=== PATIENT | male | born 1960 | race Caucasian/White ===

== ENCOUNTER 2019-05-10 19:24 | Inpatient (IN) ==
[2019-05-10] MEDS ORDERED: SODIUM CHLORIDE 0.9% 500 ML IV SCH (19:45)
[2019-05-10 20:04] LABS: Basophils # (auto) 0.01 K/uL (0-0.2); Basophils % (auto) 0.1 %; Hematocrit (blood only) 40.7 % (42-52); Hemoglobin 14.6 g/dL (14.0-18.0); Immature Granulocytes # (auto) 0.04 K/uL (0.00-0.02); Immature Granulocytes % (auto) 0.3 %; Lymphocytes # (auto) 0.36 K/uL (1.2-3.4); Lymphocytes % (auto) 2.7 %; Mean Corpuscular Hemoglobin 35.7 pg (25-34); Mean Corpuscular Hgb Conc 35.9 g/dL (32-36); Mean Corpuscular Volume 99.5 fL (80-100); Mean Platelet Volume 9.7 fL (7.4-10.4); Monocytes % (auto) 2.3 %; Neutrophils # (auto) 12.42 K/uL (1.4-6.5); Neutrophils % (auto) 94.6 %; Platelet Count 294 K/uL (130-400); RDW Coefficient of Variation 14.3 % (11.5-14.5); RDW Standard Deviation 52.1 fL (36.4-46.3); Red Blood Count 4.09 M/uL (4.7-6.1); White Blood Count 13.13 K/uL (4.8-10.8)
[2019-05-10 20:27] LABS: Appearance Urine Cloudy (Clear); Bacteria Urine Automated 4+ (Negative); Bilirubin Urine Negative (Negative); Blood Urine 3+ (Negative); Color Urine Yellow; Glucose Urine UA 2+ (Negative); Ketones Urine 1+ (Negative); Leukocyte Esterase Urine 2+ (Negative); Nitrite Urine Negative (Negative); Protein Urine 2+ (Negative); RBC Urine Automated 0-4 /hpf (0-4); Urobilinogen Urine Negative (Negative); WBC Urine Automated >30 /hpf (0-5); pH Urine 5.5 (4.5-7.5)
--- NOTE | 2019-05-10 20:33 | CT Scan Report ---
CT head/brain wo con CLINICAL HISTORY: 58 years-old Male with ams eval for bleed. Acutely altered mental status TECHNIQUE: Multiple axial CT images of the head were obtained without contrast. A dose lowering tech nique was utilized adhering to the principles of ALARA. CT DOSE: 614.27 mGy.cm COMPARISON: Head CT 05/14/2016. FINDINGS: No acute intracranial hemorrhage, midline shift, intracranial mass, hydrocephalus, territorial ischem ia or abnormal extra-axial collection. Age-related involutional changes with ex vacuo ventriculomegal y. Patchy white matter hypodensities suggest chronic microvascular ischemic disease, progressed from comparison study. Cerebral vascular calcifications are also noted. The calvarium is intact. The paranasal sinuses, mastoid air cells, and middle ear cavities are clear . IMPRESSION: 1. No acute intracranial abnormality. 2. Age-related involutional changes with ex vacuo ventriculomegaly. 3. Patchy white matter hypodensities suggestive of chronic microvascular ischemic disease, progressiv dawson worsened from 05/14/2016. The above report was generated using voice recognition software. It may contain grammatical, syntax o r spelling errors. Electronically signed by: Jacky Vital M.D. 05/10/2019 8:32 PM
[2019-05-10 20:35] LABS: Troponin I 1.19 ng/ml (0-0.045)
[2019-05-10 20:43] LABS: Albumin Globulin Ratio 0.6 (0.9-2); Albumin Level 2.9 gm/dl (3.4-5.0); BUN Creatinine Ratio 33.8 (10-20); Bilirubin,Total 0.5 mg/dl (0.2-1); Calcium 9.6 mg/dl (8.5-10.1); Creatinine Clr Calc Pharmacy 64.5 ml/min; Est GFR (African American) 112.2; Est GFR (Non-African American) 96.8; Globulin 5.2 gm/dl (2.5-4.0); Magnesium 2.1 mg/dl (1.8-2.4); Potassium 3.9 mmol/L (3.5-5.1); Thyroid Stimulating Hormone 2.32 uIu/ml (0.300-4.500); Total Protein 8.1 gm/dl (6.4-8.2)
[2019-05-10 20:56] LABS: Cast Urine Automated 0 /lpf (0-5)
--- NOTE | 2019-05-10 20:57 | XRay Report ---
XR chest 1V portable HISTORY: 58 years-old Male weakness acute weakness COMPARISON: Chest CT 05/14/2016 TECHNIQUE: Portable AP view of the chest FINDINGS: Cardiomediastinal and hilar silhouettes are within normal limits. No pneumothorax, large pleural effu cora or overt pulmonary edema. Multifocal patchy alveolar opacities are noted throughout the left vi g and to lesser extent within the right upper lobe. Degenerative changes of the shoulders and spine. IMPRESSION: Patchy multifocal alveolar opacities throughout the left lung and to a lesser extent with in the right upper lobe are suggestive of multifocal pneumonia. The above report was generated using voice recognition software. It may contain grammatical, syntax o r spelling errors. Electronically signed by: Jacky Vital M.D. 05/10/2019 8:56 PM
[2019-05-10] MEDS ORDERED: OPTIRAY 320 125ml IV PRN (21:12)
[2019-05-10 21:16] LABS: Creatine Kinase MB 26.1 ng/ml (0.5-3.6)
--- NOTE | 2019-05-10 21:31 | CT Scan Report ---
CT angio neck with con, CT angio head w con CLINICAL HISTORY: 58 years-old Male with right weakness eval for occlusion. Acute right-sided weak ness with strokelike symptoms. COMPARISON STUDY: Head CT of same day, cervical spine and chest CT 05/14/2016 TECHNIQUE: Following the IV administration of 118 of Optiray 320, CT angiogram of the head and neck w as performed from the aortic arch to the skull base. Images are reviewed in the axial, sagittal, and coronal planes. 3-D MIPS images are created and assessed. IV contrast was administered without compli cation. All measurements were calculated based on NASCET criteria. A dose lowering technique was uti lized adhering to the principles of ALARA. CT DOSE: 475.42 mGy.cm FINDINGS: The imaged opacified pulmonary tree all branches of the upper lobes appear unremarkable. Moderate mix ed plaque of the thoracic aortic arch with patency of the imaged bilateral proximal subclavian arteri es. There is mild mixed plaque of the right common carotid artery without high-grade stenosis. Severe mixed plaque of the right carotid bulb and proximal right ICA results in less than 50% luminal narro wing. There is severe mixed plaque about the mid left common carotid artery, image 153 of series 2 wh ich results in approximately 60% luminal narrowing. Severe mixed plaque of the left carotid bulb and proximal left ICA results in 50% luminal narrowing, image 21 series 2. Extensive calcified plaque is noted about the bilateral cavernous, clinoid and supraclinoid segments with approximately 50% luminal narrowing of the right cavernous segment, image 376 series 2. The bilateral middle and anterior cere bral arteries appear patent. Dominant left vertebral artery. Calcified plaque at the origin of the left vertebral artery is noted without high-grade stenosis. Moderate calcified plaque about the V4 segment left vertebral artery res ults in approximately 50% luminal narrowing on image 353 series 2. Calcified plaque at the origin of the right vertebral artery results in moderate luminal narrowing. Calcified plaque about the V2 segme nt right vertebral artery on image 181 series 2 results in approximately 50% luminal narrowing. Large area of calcified plaque about the V4 segment right vertebral artery on image 327 just proximal to t he PICA origin. The distal right V4 segment is diminutive in size. Patent basilar and bilateral poste rior cerebral arteries. Cerebral venous sinuses appear patent. Emphysema. Patchy nodular alveolar opacities of the lung apices suggests infectious or inflammatory p neumonitis. Irregular 8 x 4 mm solid nodule of the right lung apex, new from 2016. Soft tissues of th e neck are unremarkable. No intracranial enhancement. Degenerative changes of the spine. Mastoid air cells and middle ear cavities are clear. Mild mucosal thickening of the frontal and ethmoid sinuses. IMPRESSION: 1. Severe mixed plaque of the right carotid bulb and proximal right ICA results in less than 50% chon nal narrowing. 2. Severe mixed plaque of the left carotid bulb and proximal left ICA results in 50% luminal narrowin g. Additionally, there is calcified plaque of the mid left common carotid artery resulting in 60% lum inal narrowing. 3. No aneurysm, dissection, or proximal branch occlusion. 4. Emphysema with partially imaged patchy nodular consolidative opacities as described on chest radio graph of same day suggestive of infectious or inflammatory pneumonitis. 5. Irregularity 8 x 4 mm solid nodule of the right lung apex is new from 2016. Follow-up as described below is needed to exclude neoplasm. Please refer to below summary of Fleischner criteria recommendations for follow-up of incidental CT n odules (Addie Simpson, Guidelines for management of small pulmonary nodules detected on CT scans: A sta tement from the Fleischner Society, Radiology 237: [phone].) SOLID NODULES Solitary nodule size: <6 mm * Low risk patients: no follow-up needed * high risk patients: optional CT at 12 months Solitary nodule size: 6-8 mm * Low risk patients: follow-up at 6-12 months, then consider further follow-up at 18-24 months * high risk patients: initial follow-up CT at 6-12 months and then at 18-24 months if no change Solitary nodule size: >8 mm * either low or high risk patients - consider follow-up CT at 3 months, and/or CT-PET, and/or biopsy Multiple nodules size: <6 mm * Low risk patients: no routine follow-up * high risk patients: optional CT at 12 months Multiple nodules size: 6-8 mm * Low risk patients: follow-up at 3-6 months, then consider further follow-up at 18-24 months * high risk patients: follow-up at 3-6 months, then at 18-24 months if no change Multiple nodules size: >8 mm * Low risk patients: follow-up at 3-6 months, then consider further follow-up at 18-24 months * high risk patients: follow-up at 3-6 months, then at 18-24 months if no change Note: newly detected indeterminate nodule in persons 35 years of age or older. * Low risk patients: minimal or absent history of smoking and/or other known risk factors * high risk patients: history of smoking or of other known risk factors (e.g. first degree relative with lung cancer, or exposure to asbestos, radon, uranium) * if a nodule up to 8 mm is partly solid or is ground glass further follow-up is required after 24 m onths to exclude possible slow growing adenocarcinoma ([facility]YSTLE) The above report was generated using voice recognition software. It may contain grammatical, syntax o r spelling errors. Electronically signed by: Jacky Vital M.D. 05/10/2019 9:29 PM
[2019-05-10] MEDS ORDERED: PIPERACILLIN/TAZOBACTAM 4.5 GM/120 ML BAG IV ONE (21:55)
[2019-05-10] MEDS ORDERED: PIPERACILL/TAZOBAC CONSULT ACTIVE PRN (21:55)
--- NOTE | 2019-05-10 23:36 | Emergency Department Note ---
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 sent a CPK and CK-MB level which were both elevated. He was given normal saline IV. I did discuss the case with the hospitalist and case investigator. He will be hospitalized for further care and evaluation. Impression & Plan AMS (altered mental status), Hypoglycemia, Stroke-like symptoms, Right sided weakness, Elevated troponin, Abnormal ECG, Acute UTI, Multifocal pneumonia Discharge Plan Visit Data Chief Complaint: Altered Mental Status Stated Complaint: AMS, Hypoglycemia ED Provider: Eagle Flaherty Discharge Problem: AMS (altered mental status), Hypoglycemia, Stroke-like symptoms, Right sided weakness, Elevated troponin, Abnormal ECG, Acute UTI, Multifocal pneumonia Patient Disposition: Being Evaluated by Hospitalist Forms Stand Alone Forms: My [facility] Prescriptions Prescriptions: No Action metoprolol tartrate [Lopressor] 50 mg Tablet 25 mg PO BID RF: 0 lisinopril [Zestril] 2.5 mg Tablet 2.5 mg PO DAILY RF: 0 Referrals Referrals: PCP,NO [Primary Care Provider] - Discharge Problem: AMS (altered mental status) Qualifiers: Altered mental status type: unspecified Qualified Code(s): R41.82 - Altered m ental status, unspecified The scribe's documentation has been prepared under my direction and personally reviewed by me in its entirety. I confirm that the note above accurately reflects all work, treatment, procedures, and medical decision making performed by me.
[2019-05-11] MEDS ORDERED: PIPERACILL/TAZOBAC CONSULT ACTIVE PRN (00:56)
[2019-05-11] MEDS ORDERED: D5W AND 1/2NSS 1,000 ML IV SCH (00:56)
[2019-05-11] MEDS ORDERED: ALBUT/IPRATROP 3MG/0.5MG NEB 3 ML VIAL NEB PRN (00:56)
[2019-05-11] MEDS ORDERED: ONDANSETRON INJ 2 MG/ML 2 ML VIAL IV PRN (00:56)
[2019-05-11] MEDS ORDERED: KETOROLAC TROMETHAMINE 15 MG/ML VIAL IV PRN (00:56)
[2019-05-11] MEDS ORDERED: VANCOMYCIN CONSULT ACTIVE PRN (00:56)
[2019-05-11] MEDS ORDERED: VANCOMYCIN HCL 1,250 MG in SODIUM CHLORIDE 0.9% 250 ML IV STA (01:11)
[2019-05-11] MEDS ORDERED: METOPROLOL TARTRATE 1 MG/ML VIAL IV STA (01:15)
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
[2019-05-11] MEDS: PIPERACILLIN/TAZOBACTAM 3.375 GM in DEXTROSE 5% 100 ML IV SCH ×3 (04:12→21:08)
[2019-05-11] MEDS: FAMOTIDINE 20 MG TAB PO SCH ×4 (04:14→21:08)
[2019-05-11 07:18] LABS: Hematocrit (blood only) 34.9 % (42-52); Hemoglobin 12.2 g/dL (14.0-18.0); Mean Corpuscular Hemoglobin 34.7 pg (25-34); Mean Corpuscular Volume 99.1 fL (80-100); Mean Platelet Volume 8.9 fL (7.4-10.4); Platelet Count 222 K/uL (130-400); RDW Coefficient of Variation 14.3 % (11.5-14.5); RDW Standard Deviation 51.7 fL (36.4-46.3); Red Blood Count 3.52 M/uL (4.7-6.1); White Blood Count 14.53 K/uL (4.8-10.8)
[2019-05-11 07:38] LABS: Albumin Level 2.2 gm/dl (3.4-5.0); Bilirubin Direct 0.2 mg/dl (0-0.2); Calcium 8.3 mg/dl (8.5-10.1); Creatinine Clr Calc Pharmacy 72.6 ml/min; Est GFR (Non-African American) 102.7; Potassium 2.2 mmol/L (3.5-5.1)
[2019-05-11 08:09] LABS: Albumin Globulin Ratio 0.5 (0.9-2); Bilirubin,Total 0.5 mg/dl (0.2-1); Ferritin 2562.4 ng/ml (8-388); Globulin 4.4 gm/dl (2.5-4.0); Total Protein 6.6 gm/dl (6.4-8.2); Troponin I 1.25 ng/ml (0-0.045)
[2019-05-11] MEDS ORDERED: POTASSIUM CHLORIDE 20 MEQ TABCR PO STA (08:31)
[2019-05-11] MEDS: ENOXAPARIN INJ 30 MG/0.3 ML SYR SQ SCH (09:42)
[2019-05-11] MEDS: METOPROLOL TARTRATE 25 MG TAB PO SCH ×2 (09:43→21:08)
[2019-05-11] MEDS: CEROVITE ADV FORMULA TAB PO SCH (09:43)
[2019-05-11] MEDS: ASPIRIN 81 MG ECTAB PO SCH (09:44)
[2019-05-11] MEDS: THIAMINE HCL 100 MG TAB PO SCH (09:44)
[2019-05-11] MEDS: LISINOPRIL 2.5 MG TAB PO SCH (09:44)
[2019-05-11] MEDS: FOLIC ACID 1 MG TAB PO SCH (09:44)
[2019-05-11] MEDS: POTASSIUM CHLORIDE 20 MEQ TABCR PO SCH ×3 (09:45→21:08)
[2019-05-11] MEDS ORDERED: VANCOMYCIN HCL 750 MG in SODIUM CHLORIDE 0.9% 250 ML IV SCH (14:00)
[2019-05-11] MEDS: THIAMINE HCL 500 MG in 0.9 % SODIUM CHLORIDE 100 ML IV SCH ×2 (16:01→21:09)
[2019-05-11] MEDS: POTASSIUM CHLORIDE 40 MEQ in SODIUM CHLORIDE 0.45 % 1,000 ML IV SCH (16:02)
--- NOTE | 2019-05-11 17:56 | Hospitalist Progress Note ---
Date of Service May 11, 2019 Assessment & Plan (1) Hypoglycemia: Treated by EMS has been stable since arrival. Continue to follow (2) AMS (altered mental status): Differential seems broaddelirium from infection versus dehydration versus hypoglycemia all would fit with potential metabolic encephalopathies, late alcohol withdrawal, or Werneke Korsakoff encephalopathy certainly of concern as well -Continue to treat all possible problems, serial exams, follow closely. See below otherwise. (3) Right sided weakness: Unclear, seems to have been transient and corrected after hypoglycemia was corrected, but at the same time certainly hypoglycemia should not cause focal neurologic deficits, and there is definitely concern for him having vascular disease. He is not actively having a stroke, no immediate interventions are needed, but this will need to be better discerned as well. Aspirin for now. Low threshold for neurology consult by stroke center guidelines. (4) Elevated troponin: Patient declines chest pain Has stayed in a fairly steady range, with no rise and fall indicative of VT, no EKG changes indicative of VT. Possibly related to LVH noted on echo. Continue to follow closely. Given the level of his troponin, and the concern for vascular disease, obviously will need to follow closely, low threshold to consider things such as stress mercedes ting if the need arises (5) Multifocal pneumonia: Aspiration versus community-acquiredMRSA nares was negative, continue Zosyn to cover for both (6) Acute UTI: Versus asymptomatic bacteriuriabut already on Zosyn for lungs (7) Ulcers of both lower extremities: Does not have tracking erythema, while he is high risk for lots of significant problems, healthcare associated infection does not appear to be 1 of them, so the Zosyn alone without vancomycin should cover (8) Malnutrition: Appears to be at least moderate to may be severe protein and calorie malnutrition as indicated by his low weight is emaciated appearance and his low albumin. Supplement electrolytes and vitamins, nutritional supplements once he is able to. With his dysphasia there is high concern about aspiration, will need to follow this closely, right now he is not able to safely eat and we may need to place an NG tube for tube feeds if it does not appear to be improving anytime soon. (9) Dysphasia: Speech eval quite concerning, ongoing eval and treat. Is unclear how much of this may be chronic versus acute. Hopefully as some of his delirium/encephalopathy improves he may be L to eat and drink more safely. Otherwise as above (10) Alcohol abuse: Is unclear how long he was a drinker or when he quit. In his history of questionable veracity he tells me he quit about a month ago. Certainly if that is true, and he suffered bad withdrawal, we could be seeing the "fall out" of having gone through DTs at home and now being malnourished/delirious/sick from an aspiration pneumonia, etc. Continue to follow closely. Given that Wernicke- Korsakoff is on the differentialwe are giving not only folate but also high- dose thiamine. (11) DVT prophylaxis: lovenox (12) Discharge planning issues: likely to be here a good while given cormobidities - as getting better will need PT/OT and probably case management. ?placement Subjective Notes that he feels fine, denies any pain denies any shortness of breath. Exceedingly limited HPI and review of systems of very questionable veracity, gives 1-2 word answers to directed questions only. Denies any problems. Review of Systems Review of Systems: All systems reviewed & are unremarkable except as noted in HPI & below and Unobtainable due to cognitive status See above Physical Exam Physical Exam: In general he is awake and alert is able to say that he is in the hospital, but appears to be quite altered. Fatigued laying somewhat hunched over in the bed. No apparent pain or respiratory distress. HEENT normocephalic atraumatic mucous membranes are moist Cardio is distant without rubs murmurs gallops Lungs show mucus sounding rhonchi bilaterally left worse than right as well as what sounds to be some referred upper airway sounds. No wheezing no accessory muscle use Abdomen soft nontender Extremities without cyanosis clubbing or edema Skin with diffuse ulcerations, no tracking erythema. No pallor or icterus Neuro without any focal deficits. Mental status seems quite poor, difficult to appellate court judge given the limited nature of his answers Results & Data Vital Signs (Past 12 Hours) Vital Signs Temp Pulse Pulse Resp BP BP Pulse Ox 05/11/19 16:00 67 05/11/19 15:53 98.4 F 90 18 134/88 98 05/11/19 11:55 98.2 F 76 20 134/84 96 05/11/19 08:09 97.9 F 75 16 118/82 96 05/11/19 08:00 74 PG Care Time/CCT Total # of Minutes Spent Total Time Spent with Patient: Total time spent is greater than 50% in coordination of care (as documented) at patient's floor/unit and/or counseling patient: (1) AMS (altered mental status) Altered mental status type: unspecified Qualified Code(s): R41.82 - Altered mental status, unspecified
[2019-05-11] MEDS ORDERED: ALBUT/IPRATROP 3MG/0.5MG NEB 3 ML VIAL NEB STA (19:27)
[2019-05-11] MEDS: ALBUT/IPRATROP 3MG/0.5MG NEB 3 ML VIAL NEB SCH ×2 (20:25→23:58)
[2019-05-11 20:44] LABS: Base Excess ABG 0.1 mEq/L (-9-1.8); HCO3 ABG 22 mmol/L (19-24); Oxygen Saturation ABG 95.5 % (90-95); PCO2 ABG 29 mmHg (35-46); PO2 ABG 75 mm/Hg (80-95)
[2019-05-11 20:47] LABS: Allen Test Pos (Pos)
[2019-05-11] MEDS ORDERED: THIAMINE HCL 500 MG in SYRINGE 9 ML IV SCH (21:00)
[2019-05-12] MEDS: ALBUT/IPRATROP 3MG/0.5MG NEB 3 ML VIAL NEB SCH ×6 (02:33→23:39)
[2019-05-12] MEDS: PIPERACILLIN/TAZOBACTAM 3.375 GM in DEXTROSE 5% 100 ML IV SCH ×3 (03:50→21:25)
[2019-05-12] MEDS: POTASSIUM CHLORIDE 40 MEQ in SODIUM CHLORIDE 0.45 % 1,000 ML IV SCH ×2 (03:50→15:05)
[2019-05-12 05:59] LABS: Hematocrit (blood only) 34.6 % (42-52); Hemoglobin 12.1 g/dL (14.0-18.0); Mean Corpuscular Hemoglobin 34.4 pg (25-34); Mean Corpuscular Volume 98.3 fL (80-100); Mean Platelet Volume 9.7 fL (7.4-10.4); Platelet Count 213 K/uL (130-400); RDW Coefficient of Variation 14.3 % (11.5-14.5); RDW Standard Deviation 51.4 fL (36.4-46.3); Red Blood Count 3.52 M/uL (4.7-6.1); White Blood Count 7.57 K/uL (4.8-10.8)
[2019-05-12 06:18] LABS: Basophils # (auto) 0.01 K/uL (0-0.2); Basophils % (auto) 0.1 %; Dohle Bodies 1+; Echinocytes 1+; Immature Granulocytes # (auto) 0.04 K/uL (0.00-0.02); Immature Granulocytes % (auto) 0.5 %; Lymphocytes # (auto) 0.27 K/uL (1.2-3.4); Lymphocytes % (auto) 3.6 %; Monocytes % (auto) 1.3 %; Neutrophils # (auto) 7.15 K/uL (1.4-6.5); Neutrophils % (auto) 94.5 %
[2019-05-12 06:39] LABS: Albumin Globulin Ratio 0.5 (0.9-2); Albumin Level 1.9 gm/dl (3.4-5.0); BUN Creatinine Ratio 26.4 (10-20); Bilirubin Direct 0.3 mg/dl (0-0.2); Bilirubin,Total 0.6 mg/dl (0.2-1); Calcium 8.5 mg/dl (8.5-10.1); Creatinine Clr Calc Pharmacy 90.8 ml/min; Est GFR (African American) 132.2; Est GFR (Non-African American) 114.1; Globulin 4.2 gm/dl (2.5-4.0); Potassium 3.3 mmol/L (3.5-5.1); Total Protein 6.1 gm/dl (6.4-8.2)
--- NOTE | 2019-05-12 06:39 | CT Scan Report ---
CT angio chest PE protocol CT DOSE: 283.05 mGy.cm HISTORY: Dyspnea sudden hypoxia TECHNIQUE: Multiaxial CT images of the chest were performed following the intravenous administration of contrast to evaluate the pulmonary arteries. Maximal intensity projection images were also obtaine d. A dose lowering technique was utilized adhering to the principles of ALARA. COMPARISON STUDY: 05/14/2016 FINDINGS: The examination is considered negative for pulmonary embolus. Pulmonary vasculature enhance s uniformly. Thoracic aorta is negative for aneurysm. There are findings of diffuse bilateral parenchymal infiltrative change. This is somewhat more promin ent involving the left hemithorax compared to the right. Scattered areas of consolidative change are present throughout. There are at least 2 old right rib fractures. No significant and are only minimally reactive mediastinal and/or hilar adenopathy. IMPRESSION: 1. Size negative for pulmonary embolus. 2. Diffuse bilateral consolidative parenchymal infiltrative changes. 3. Emphysematous change considered mild with several small blebs in the pulmonary apical regions. The above report was generated using voice recognition software. It may contain grammatical, syntax or spelling errors. Electronically signed by: Georgi Rapp M.D. 05/12/2019 6:38 AM
[2019-05-12] MEDS: ASPIRIN 81 MG ECTAB PO SCH (07:39)
[2019-05-12] MEDS: CEROVITE ADV FORMULA TAB PO SCH (07:40)
[2019-05-12] MEDS: THIAMINE HCL 100 MG TAB PO SCH (07:40)
[2019-05-12] MEDS: METOPROLOL TARTRATE 25 MG TAB PO SCH (07:40)
[2019-05-12] MEDS: FAMOTIDINE 20 MG TAB PO SCH (07:40)
[2019-05-12] MEDS: LISINOPRIL 2.5 MG TAB PO SCH (07:40)
[2019-05-12] MEDS: FOLIC ACID 1 MG TAB PO SCH (07:40)
[2019-05-12] MEDS: THIAMINE HCL 500 MG in 0.9 % SODIUM CHLORIDE 100 ML IV SCH ×3 (07:57→21:25)
[2019-05-12] MEDS: ENOXAPARIN INJ 30 MG/0.3 ML SYR SQ SCH (07:57)
[2019-05-12] MEDS: FOLIC ACID 1 MG in SYRINGE 9.8 ML IV SCH (08:36)
[2019-05-12] MEDS: METOPROLOL TARTRATE 1 MG/ML VIAL IV SCH ×2 (11:26→19:33)
[2019-05-12] MEDS ORDERED: VANCOMYCIN TROUGH ONE (13:30)
--- NOTE | 2019-05-12 17:41 | Hospitalist Progress Note ---
Date of Service May 12, 2019 Assessment & Plan (1) Hypoglycemia: Treated by EMS has been stable since arrival. Continue to follow (2) AMS (altered mental status): Differential seems broaddelirium from infection versus dehydration versus hypoglycemia all would fit with potential metabolic encephalopathies, late alcohol withdrawal, or Werneke Korsakoff encephalopathy certainly of concern as well -Continue to treat all possible problems as I suspect this is multifactorial, serial exams, follow closely. See below otherwise. (3) Right sided weakness: Unclear, seems to have been transient and corrected after hypoglycemia was corrected, but at the same time certainly hypoglycemia should not cause focal neurologic deficits, and there is definitely concern for him having vascular disease. He is not actively having a stroke, no immediate interventions are needed, but this will need to be better discerned as well. Aspirin for now. Repeat brain imagingsince we have been unable to obtain MRI brain we will repeat CT head. He shows no focal neuro deficits now outside of his asymmetric pupils (which again have a chronic appearance to it although I do not recall seeing it yesterday, his eyes have not been very widely opened and yesterday was certainly much more concerned with his respiratory status) (4) Elevated troponin: While his history is of questionable veracity he has repeatedly denied chest pain. His echo shows a degree of LVH. Certainly he could have underlying coronary disease, and this may be indicative of demand ischemia from his pneumonia and overall presentation, but certainly nothing appears acute otherwise. Continue to follow closely, continue aspirin (5) Multifocal pneumonia: Aspiration versus community-acquiredMRSA nares was negative, continue Zosyn to cover for both. Certainly there is high concern on aspiration given his overall inability to swallow safely. (6) Acute UTI: Versus asymptomatic bacteriuriabut already on Zosyn for lungs (7) Ulcers of both lower extremities: Continue local wound care. (8) Malnutrition: Appears to be at least moderate to may be severe protein and calorie malnutrition as indicated by his low weight is emaciated appearance and his low albumin. Supplement electrolytes and vitamins, nutritional supplements once he is able to. Given that his dysphagia is not improving, and his malnutrition probably preceded his hospitalization by quite a bit, we will place an NG tube to be able to start tube feedings (9) Dysphasia: Speech eval quite concerning, ongoing eval and treat. Is unclear how much of this may be chronic versus acute. Hopefully as he clinically improves he will be able to eat and drink more safely, but as above noted under malnutrition, I harbor grave concerns about his ability to gain ground that he loseshence placing NG tube and starting tube feeds. (10) Alcohol abuse: Is unclear how long he was a drinker or when he quit. In his history of questionable veracity he tells me he quit about a month ago. Certainly if that is true, and he suffered bad withdrawal, we could be seeing the "fall out" of having gone through DTs at home and now being malnourished/delirious/sick from an aspiration pneumonia, etc. Continue to follow closely. Given that Wernicke- Korsakoff is on the differentialwe are giving not only folate but also high- dose thiamine. Continue to replace these. (11) DVT prophylaxis: lovenox (12) Discharge planning issues: likely to be here a good while given cormobidities - as getting better will need PT/OT and probably case management. ?placement Subjective Not much of any meaningful HPI or review of systems obtainable from patient today. Nursing notes that he has been about the same as through the early part of the day yesterday. Still with no meaningful ability to swallow, still giving questionably coherent 1-2 word answers and grunts, but generally appearing to not be in any significant distress. He does sometimes desaturate whenever he is asleep, and they have been working with various oxygen devices to remedy this. To me he denies any complaints, but again opens his eyes about fci and gives 1 word answers. Review of Systems Review of Systems: Unobtainable due to cognitive status Physical Exam Physical Exam: General he appears quite fatigued although in no distress. HEENT normocephalic atraumatic mucous membranes moist. Cardio is regular withou t rubs murmurs gallops, lungs show diffuse coarse rhonchi bilaterally no wheezing no accessory muscle use good effort. Abdomen is soft nondistended nontender no masses organomegaly. Extremities show no cyanosis clubbing or edema no calf tenderness. He has diffuse muscle wasting. Neuro shows equal muscle tone bilaterally, his left pupil is significantly larger than the right but has a chronic appearance to it, although I did not notice it yesterday Results & Data Vital Signs (Past 12 Hours) Vital Signs Temp Pulse Pulse Pulse Resp BP BP 05/12/19 15:27 98.1 F 79 18 116/76 05/12/19 15:23 79 16 05/12/19 11:26 105 H 112/81 05/12/19 10:54 83 20 05/12/19 10:49 98.4 F 95 H 22 123/81 05/12/19 07:29 98.8 F 105 H 20 134/94 05/12/19 06:55 90 22 Pulse Ox 05/12/19 15:27 96 05/12/19 15:23 96 05/12/19 11:26 05/12/19 10:54 87 L 05/12/19 10:49 93 05/12/19 07:29 90 05/12/19 06:55 90 PG Care Time/CCT Total # of Minutes Spent Total Time Spent with Patient: Total time spent is greater than 50% in coordination of care (as documented) at patient's floor/unit and/or counseling patient: (1) AMS (altered mental status) Altered mental status type: unspecified Qualified Code(s): R41.82 - Altered mental status, unspecified
--- NOTE | 2019-05-12 19:06 | CT Scan Report ---
CT head/brain wo con CLINICAL HISTORY: 58 years-old Male presenting with right sided weakness; f/u CT since unable to unde rgo MRI. TECHNIQUE: Multidetector CT imaging of the head was performed without the use of intravenous contrast . IV contrast: None. One or more dose lowering techniques were used consistent with the principles of ALARA (as low as reasonably achievable), including automatic exposure control, mA or kV adjustment t o individual patient size, and/or use of iterative reconstruction. COMPARISON: 05/10/2019. CT DOSE (mGy.cm): The estimated cumulative dose is 614.27 mGy.cm. FINDINGS: Skein Yard Drier topogram: Unremarkable. Proportional ventricular and sulcal prominence, likely age-related parenchymal volume loss. No hemorr bethany. Periventricular and subcortical white matter hypoattenuation, nonspecific but likely indicative of chronic small vessel ischemic change. No acute territorial infarct. No mass effect or midline chino ft. No extra-axial fluid collection. Paranasal sinuses and mastoid air cells clear. Calvarium intact. Intracranial atherosclerosis noted. IMPRESSION: 1. Chronic small vessel ischemic change. No acute intracranial abnormality. Electronically signed by: Lex Claros M.D. 05/12/2019 7:05 PM
[2019-05-12] MEDS ORDERED: ACETYLCYSTEINE 20% INHAL SOLN ***DISPENSED BY RESP. INH ONE (21:50)
[2019-05-13] MEDS: METOPROLOL TARTRATE 1 MG/ML VIAL IV SCH ×4 (01:00→18:51)
[2019-05-13] MEDS: ALBUT/IPRATROP 3MG/0.5MG NEB 3 ML VIAL NEB SCH ×6 (03:43→23:08)
[2019-05-13] MEDS: PIPERACILLIN/TAZOBACTAM 3.375 GM in DEXTROSE 5% 100 ML IV SCH ×3 (05:20→21:53)
[2019-05-13] MEDS: POTASSIUM CHLORIDE 40 MEQ in SODIUM CHLORIDE 0.45 % 1,000 ML IV SCH ×2 (05:20→17:02)
--- NOTE | 2019-05-13 06:54 | XRay Report ---
XR KUB/Abdomen 1 view CLINICAL HISTORY: MRI clearance COMPARISON STUDY: No previous studies for comparison. FINDINGS: There are extensive vascular calcifications present. There is no pathologic bowel dilatatio n. Overlying cardiac leads are visualized. There are no mechanical devices or foreign bodies within t he abdomen. IMPRESSION: 1. Nonobstructive bowel gas pattern 2. No abdominal contraindications for MRI scanning Electronically signed by: Pepito Vieira M.D. 05/13/2019 6:53 AM
[2019-05-13 08:14] LABS: Basophils # (auto) 0.01 K/uL (0-0.2); Basophils % (auto) 0.1 %; Eosinophils # (auto) 0.01 K/uL (0-0.5); Eosinophils % (auto) 0.1 %; Hematocrit (blood only) 32.5 % (42-52); Hemoglobin 11.4 g/dL (14.0-18.0); Immature Granulocytes # (auto) 0.02 K/uL (0.00-0.02); Immature Granulocytes % (auto) 0.2 %; Lymphocytes # (auto) 0.39 K/uL (1.2-3.4); Lymphocytes % (auto) 4.1 %; Mean Corpuscular Hemoglobin 34.9 pg (25-34); Mean Corpuscular Hgb Conc 35.1 g/dL (32-36); Mean Corpuscular Volume 99.4 fL (80-100); Mean Platelet Volume 9.3 fL (7.4-10.4); Monocytes # (auto) 0.21 K/uL (0.11-0.59); Monocytes % (auto) 2.2 %; Neutrophils # (auto) 8.93 K/uL (1.4-6.5); Neutrophils % (auto) 93.3 %; Platelet Count 180 K/uL (130-400); RDW Coefficient of Variation 14.3 % (11.5-14.5); RDW Standard Deviation 52.1 fL (36.4-46.3); Red Blood Count 3.27 M/uL (4.7-6.1); White Blood Count 9.57 K/uL (4.8-10.8)
[2019-05-13 08:53] LABS: BUN Creatinine Ratio 31.9 (10-20); Calcium 8.6 mg/dl (8.5-10.1); Creatinine Clr Calc Pharmacy 110.5 ml/min; Est GFR (African American) 143.6; Est GFR (Non-African American) 123.9; Potassium 3.7 mmol/L (3.5-5.1)
--- NOTE | 2019-05-13 09:25 | Magnetic Resonance Report ---
MR brain wo con CLINICAL HISTORY: 58 years-old Male presenting with Transient Right sided weakness, nonverbal, anisoc oria, left facial droop. TECHNIQUE: Multisequence, multiplanar MR imaging of the brain was performed without the use of intrav enous contrast. IV contrast: None. COMPARISON: Noncontrast CT head performed the previous day urine FINDINGS: Localizer images: Unremarkable. Bone marrow signal intensity within the calvarium within normal limits. Normal midline sagittal structures. Proportional ventricular and sulcal prominence consistent with pa renchymal atrophy. This is out of proportion to the patient's age and is diffuse.. No mass effect or midline shift. Multiple small foci of acute restricted diffusion noted in the left paramedian superio r cerebellum, left periventricular white matter along the posterior limb of the internal capsule, per iventricular white matter adjacent to the left body of the caudate, in the subcortical white matter o f the left temporal lobe. Although their size makes correlation difficult, these appear to have assoc iated low signal intensity on ADC map. Periventricular and subcortical white matter T2/FLAIR hyperint ensity, nonspecific but likely indicative of chronic small vessel ischemic change. No extra-axial fluid collection. T2 skull base flow voids preserved. IMPRESSION: 1. Multifocal small foci of acute ischemia in the periventricular and subcortical white matter of th e left cerebrum. 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 Differential considerations include cerebral autosomal dominant arter iopathy with subcortical infarcts and leukoencephalopathy (CADASIL) or, less likely, CHILLER OPERATOR vasculitis. Notably, no findings to suggest CHILLER OPERATOR vasculitis were demonstrated on the CTA performed recently on 06/2019. Electronically signed by: Lex Claros M.D. 05/13/2019 9:23 AM
[2019-05-13] MEDS: ENOXAPARIN INJ 30 MG/0.3 ML SYR SQ SCH (09:38)
[2019-05-13] MEDS: FOLIC ACID 1 MG in SYRINGE 9.8 ML IV SCH (09:38)
[2019-05-13] MEDS: THIAMINE HCL 500 MG in 0.9 % SODIUM CHLORIDE 100 ML IV SCH ×2 (10:28→15:53)
--- NOTE | 2019-05-13 20:49 | Hospitalist Progress Note ---
Date of Service May 13, 2019 Assessment & Plan (1) AMS (altered mental status): Differential seems broaddelirium from infection versus dehydration versus hypoglycemia all would fit with potential metabolic encephalopathies, late alcohol withdrawal, or Werneke Korsakoff encephalopathy certainly of concern as well -Continue to treat all possible problems as I suspect this is multifactorial, serial exams, follow closely. See below otherwise. (2) Multifocal pneumonia: Aspiration versus community-acquiredsince MRSA nares was negative, continue Zosyn will cover for both. Certainly there is high concern on aspiration given his overall inability to swallow safely. Fortunately this does appear to be improving. (3) Stroke: Appreciate neurology input. Has not shown A. fib, echo without worrisome findings, CT angiograms with basically bilateral 50% carotid stenosis. Check lipids and A1c. Start aspirin once he is able to tolerate, possibly by NG as soon as tomorrow. Secondary risk reduction. PT/OT eval and treat. (4) Elevated troponin: While his history is of questionable veracity he has repeatedly denied chest pain. His echo shows a degree of LVH. Certainly he could have underlying coronary disease, and this may be indicative of demand ischemia from his pneumonia and overall presentation, but certainly nothing appears acute otherwise. Continue to follow closely, continue aspirin as above once he is able to tolerate (5) Dysphasia: Speech eval quite concerning, ongoing eval and treat. Even as his mentation is improving, he still seems to be significant aspiration risk. See below under malnutrition otherwise, hopefully he will start to show improvement to be undertaken oral soon. (6) Malnutrition: Appears to be at least moderate to may be severe protein and calorie malnutrition as indicated by his low weight is emaciated appearance and his low albumin. Supplement electrolytes and vitamins. Is on IV fluids for now, once tube feeds are up to speed, can also consider switching to enteral fluids. With his fairly significant swallowing dysfunction, and the fact that he has likely been malnourished for quite a while, NG tube placement was reattempted todayfortunately appears to have been successful. WILLIAMS pending, signed out to night coverage to initiate tube feeds. Talked with dietitian, input greatly appreciated. Given risk for refeeding, would start very slowlyimpact at 10 mL's an hour, and would advance slowly at approximately 5 mL's per hour every 8 hours as tolerated until he finally reaches his goal of 60/h. Follow closely for refeeding syndromeBMP/mag/phos ordered for morning. (7) Acute UTI: Versus asymptomatic bacteriuriabut already on Zosyn for lungsgrowing pansensitive Klebsiella (8) Ulcers of both lower extremities: Continue local wound care. No signs of surrounding cellulitis. (9) Alcohol abuse: Is unclear how long he was a drinker or when he quit. In his history of questionable veracity he tells me he quit about a month agoand does reiterate this each time I am able to ask him, but given that I have to ask directed questions its uncertain if he is telling me this because it is true or because I am "leading the witness". Certainly if that is true, and he suffered bad withdrawal, we could be seeing the "fall out" of having gone through DTs at home and now being malnourished/delirious/sick from an aspiration pneumonia, etc. Continue to follow closely. Given that Wernicke-Korsakoff is on the differentialwe are giving not only folate but also high-dose thiamine. Continue to replace these. (10) Hypoglycemia: Treated by EMS has been stable since arrival. Continue to follow (11) DVT prophylaxis: lovenox (12) Discharge planning issues: likely to be here a good while given cormobidities - as getting better will need PT/OT and probably case management. ?placement Subjective Still no meaningful HPI or review of systems. But he is awake more and trying to talk more. He is speaking in words although somewhat nonsensically at times, but other times will answer questions reasonably. He seems to answer questions related to what I just asked him. His HPI still of questionable veracity. He does relate that he is feeling better, that he is breathing easier and he has no pain. He answers in the affirmative that it was about a month ago that he quit drinking, but has no idea how long he was down and out at home. Discussed extensively with case management Review of Systems Review of Systems: Unobtainable due to cognitive status Physical Exam Physical Exam: In general he is awake and alert technically admits to being in the hospital, although his mental status certainly seems to still be quite suspect. HEENT normocephalic atraumatic mucous membranes moist. Lungs show coarse rhonchi left greater than right but more clear than before, no wheezing no rales good air entry no accessory muscle use. Abdomen is soft nondistended nontender no masses organomegaly. Extremities show no sinus clubbing or edema. Skin with multiple ulcers all over but no tracking erythema. Muscle wasting. Pupils unequal as per yesterday. Results & Data Vital Signs (Past 12 Hours) Vital Signs Temp Pulse Pulse Resp BP BP BP 05/13/19 20:25 98.4 F 80 16 140/75 05/13/19 19:43 75 18 05/13/19 18:51 82 136/86 05/13/19 16:00 64 05/13/19 15:58 77 18 05/13/19 15:00 97.9 F 74 18 160/97 H 05/13/19 14:52 68 05/13/19 12:00 97.9 F 76 16 158/93 H 05/13/19 11:18 75 18 Pulse Ox 05/13/19 20:25 100 05/13/19 19:43 92 05/13/19 18:51 05/13/19 16:00 05/13/19 15:58 100 05/13/19 15:00 90 05/13/19 14:52 05/13/19 12:00 95 05/13/19 11:18 95 PG Care Time/CCT Total # of Minutes Spent Total Time Spent with Patient: Total time spent is greater than 50% in coordination of care (as documented) at patient's floor/unit and/or counseling patient: (1) AMS (altered mental status) Altered mental status type: unspecified Qualified Code(s): R41.82 - Altered mental status, unspecified
[2019-05-13] MEDS ORDERED: IMPACT LIQD 1.0 CAL 1,000 ML BAG NG SCH (21:15)
--- NOTE | 2019-05-13 21:28 | XRay Report ---
KUB HISTORY: Status post placement of enteric tube NGT placement COMPARISON: KUB of same day, CTA chest 05/11/2019. FINDINGS: The bowel gas pattern is non-obstructive. Distal tip of enteric tube projects over the abdo maria fernanda left upper quadrant. Side port within the distal esophagus There is no organomegaly. No renal calculi. No ureteral calculi. No pneumoperitoneum or pneumatosis. Patchy left greater than right bila teral opacities of the lungs. No fracture. IMPRESSION: Distal tip of enteric tube projects over the expected location of the proximal gastric lumen with trudy e-port in the distal esophagus. Electronically signed by: Jacky Vital M.D. 05/13/2019 9:26 PM
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
[2019-05-13] MEDS: FAMOTIDINE 20 MG in SYRINGE 3 ML IV SCH (21:54)
[2019-05-14] MEDS: METOPROLOL TARTRATE 1 MG/ML VIAL IV SCH ×4 (00:42→19:12)
[2019-05-14] MEDS: ALBUT/IPRATROP 3MG/0.5MG NEB 3 ML VIAL NEB SCH ×6 (03:18→22:56)
[2019-05-14] MEDS: POTASSIUM CHLORIDE 40 MEQ in SODIUM CHLORIDE 0.45 % 1,000 ML IV SCH ×3 (03:31→16:26)
[2019-05-14] MEDS: PIPERACILLIN/TAZOBACTAM 3.375 GM in DEXTROSE 5% 100 ML IV SCH ×3 (03:44→21:15)
[2019-05-14 06:10] LABS: Eosinophils # (auto) 0.03 K/uL (0-0.5); Eosinophils % (auto) 0.4 %; Hematocrit (blood only) 33.8 % (42-52); Hemoglobin 11.7 g/dL (14.0-18.0); Immature Granulocytes # (auto) 0.02 K/uL (0.00-0.02); Immature Granulocytes % (auto) 0.2 %; Lymphocytes # (auto) 0.38 K/uL (1.2-3.4); Lymphocytes % (auto) 4.5 %; Mean Corpuscular Hemoglobin 34.5 pg (25-34); Mean Corpuscular Hgb Conc 34.6 g/dL (32-36); Mean Corpuscular Volume 99.7 fL (80-100); Mean Platelet Volume 9.6 fL (7.4-10.4); Monocytes # (auto) 0.21 K/uL (0.11-0.59); Monocytes % (auto) 2.5 %; Neutrophils # (auto) 7.83 K/uL (1.4-6.5); Neutrophils % (auto) 92.4 %; Platelet Count 181 K/uL (130-400); RDW Coefficient of Variation 14.3 % (11.5-14.5); RDW Standard Deviation 51.9 fL (36.4-46.3); Red Blood Count 3.39 M/uL (4.7-6.1); White Blood Count 8.47 K/uL (4.8-10.8)
[2019-05-14 06:23] LABS: Estimated Average Glucose 123 mg/dl; Hemoglobin A1C 5.9 % (4.5-5.6)
[2019-05-14 06:46] LABS: BUN Creatinine Ratio 25.6 (10-20); Calcium 8.3 mg/dl (8.5-10.1); Creatinine Clr Calc Pharmacy 128.6 ml/min; Est GFR (African American) 147.7; Est GFR (Non-African American) 127.4; Magnesium 1.7 mg/dl (1.8-2.4); Potassium 3.3 mmol/L (3.5-5.1)
[2019-05-14 06:49] LABS: Phosphorus 3.1 mg/dl (2.5-4.9)
--- NOTE | 2019-05-14 07:04 | XRay Report ---
XR KUB/Abdomen 1 view CLINICAL HISTORY: 58 years-old Male presenting with coresafe placement. TECHNIQUE: Single supine view of the abdomen was obtained. COMPARISON: 05/13/2019. FINDINGS: The nasogastric tube has been removed. A weighted feeding catheter containing a guidewire projects ov er the gastric fundus. Nonobstructive bowel gas pattern. No gross pneumoperitoneum allowing for supin e technique. Calcifications project over the left renal shadow though no nephrolithiasis was evident on prior CT f rom 05/14/2016. This may relate to renovascular calcification in the setting of extensive calcified a therosclerosis. Several old anterolateral left lower rib fractures are evident. Coarsened lung markings at the lung b ases with patchy added density. IMPRESSION: 1. Weighted feeding catheter containing guidewire terminates at the gastric fundus; advancement to b e considered to a postpyloric position. 2. No bowel obstruction. 3. Possible chronic lung disease or atelectasis at the lung bases. Electronically signed by: Lex Claros M.D. 05/14/2019 7:03 AM
[2019-05-14] MEDS: FOLIC ACID 1 MG in SYRINGE 9.8 ML IV SCH (07:52)
[2019-05-14] MEDS: ENOXAPARIN INJ 30 MG/0.3 ML SYR SQ SCH (07:53)
[2019-05-14] MEDS: THIAMINE HCL 250 MG in SODIUM CHLORIDE 0.9% 50 ML IV SCH (07:59)
[2019-05-14] MEDS: FAMOTIDINE 20 MG in SYRINGE 3 ML IV SCH ×2 (07:59→21:20)
--- NOTE | 2019-05-14 15:44 | Hospitalist Progress Note ---
Date of Service May 14, 2019 Assessment & Plan (1) AMS (altered mental status): Patient is awake today. 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 Continue monitoring thiamine and folic acid. (2) Multifocal pneumonia: Patient was cleared today by speech and placed on full liquid diet. Continue Zosyn. Patient had NG tube prior to it for issues with swallowing but he pulled it out. As well as his Pickard catheter together with the bulb. (3) Stroke: Appreciate neurology input. Has not shown A. fib, echo without worrisome findings, CT angiograms with basically bilateral 50% carotid stenosis. Check lipids and A1c. Start aspirin once he is able to tolerate, possibly by NG as soon as tomorrow. Secondary risk reduction. PT/OT eval and treat. (4) Elevated troponin: While his history is of questionable veracity he has repeatedly denied chest pain. His echo shows a degree of LVH. Certainly he could have underlying coronary disease, and this may be indicative of demand ischemia from his pneumonia and overall presentation, but certainly nothing appears acute otherwise. Continue to follow closely, continue aspirin as above once he is able to tolerate (5) Dysphasia: Patient is cleared by speech. Now he is on full liquids. (6) Malnutrition: Appears to be at least moderate to may be severe protein and calorie malnutrition as indicated by his low weight is emaciated appearance and his low albumin. Supplement electrolytes and vitamins. Continue IV fluids and full liquid diet for now and advance diet as tolerated. (7) Acute UTI: Versus asymptomatic bacteriuriabut already on Zosyn for lungsgrowing pansensitive Klebsiella (8) Ulcers of both lower extremities: Continue local wound care. No signs of surrounding cellulitis. (9) Alcohol abuse: Is unclear how long he was a drinker or when he quit. In his history of questionable veracity he tells me he quit about a month agoand does reiterate this each time I am able to ask him, but given that I have to ask directed questions its uncertain if he is telling me this because it is true or because I am "leading the witness". Certainly if that is true, and he suffered bad withdrawal, we could be seeing the "fall out" of having gone through DTs at home and now being malnourished/delirious/sick from an aspiration pneumonia, etc. Continue to follow closely. Given that Wernicke-Korsakoff is on the differentialwe are giving not only folate but also high-dose thiamine. Continue to replace these. (10) Hypoglycemia: Treated by EMS has been stable since arrival. Continue to follow (11) DVT prophylaxis: lovenox (12) Discharge planning issues: likely to be here a good while given cormobidities - as getting better will need PT/OT and probably case management. ?placement Subjective Patient seen and examined at the bedside. This morning he was sleepy but and not afternoon he was more alert and oriented. His speech is significantly impaired due to alcoholic encephalopathy. Patient was able to answer some questions and review of systems today. He denies fever chills chest pain shortness of breath abdominal pain frequency urgency hemoptysis hematemesis hematuria and dysuria. He denies symptoms of alcohol withdrawal such as hallucinations and tremors. Review of Systems Review of Systems: All systems reviewed & are unremarkable except as noted in HPI & below Physical Exam Constitutional: WD/WN, vitals as above well developed Eyes: PERRL, conjunctivae normal, anicteric sclerae ENMT: external ear and nose normal, oropharynx normal Neck: trachea midline, no thyromegaly Respiratory: normal respiratory effort, lungs clear to auscultation Cardiovascular: Heart Sounds: normal S1, normal S2 and + murmur Gastrointestinal (Abdomen): normal bowel sounds, soft, nontender, no hepatosplenomegaly Musculoskeletal: no cyanosis or clubbing, extremities motor strength 5/5 Skin: no rashes, warm and dry Neurologic: patellar DTR's 2+ bilat, sensation intact Psychiatric: Judgement: + limited judgement Severely impaired impaired speech due to alcoholic encephalopathy at limited judgment are rather poor. Lymphatic: no cervical or axillary lymphadenopathy Results & Data Vital Signs (Past 12 Hours) Vital Signs Temp Pulse Pulse Pulse Resp BP BP 05/14/19 15:16 81 16 05/14/19 12:00 36.9 C 85 18 137/85 05/14/19 11:04 85 18 05/14/19 08:00 66 05/14/19 07:02 36.5 C 78 20 05/14/19 06:54 75 18 05/14/19 05:42 81 147/92 H 05/14/19 04:54 37.0 C 81 20 05/14/19 04:00 79 BP Pulse Ox 05/14/19 15:16 94 05/14/19 12:00 90 05/14/19 11:04 97 05/14/19 08:00 05/14/19 07:02 161/100 H 100 05/14/19 06:54 100 05/14/19 05:42 05/14/19 04:54 147/92 H 99 05/14/19 04:00 PG Care Time/CCT Total # of Minutes Spent Total Time Spent with Patient: Total time spent is greater than 50% in coordination of care (as documented) at patient's floor/unit and/or counseling patient: (1) AMS (altered mental status) Altered mental status type: unspecified Qualified Code(s): R41.82 - Altered mental status, unspecified
--- NOTE | 2019-05-14 15:57 | Neurology Progress Note ---
Date of Service May 14, 2019 Assessment & Plan (1) Stroke: Farhat Clolins is a 58 yo man w/ PMH of alcohol abuse and HTN who p/t [facility] with altered mental status and poor self care, found to have multiple new strokes in the setting of malnutrition, poor self care and multiple infections (pneumonia, UTI). # Multifocal strokes: Continues to have weakness in the RUE/RLE which is expected given the location of his strokes. given different vascular territories, c/f cardioembolic source, though lacunar/lipohyalinosis in setting of alcohol withdrawal and uncontrolled HTN could also be possible given MRI findings. 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; does show a new 4x8mm lung nodule - MRI brain: acute to subacute infarcts in the left internal capsule, left centrum semiovale and medial cerebellum; severe generalized atrophy with significant ex vacuo dilation is noted, as well as moderate SVID - TTE: EF 55-60% - Telemetry: pending - A1c: 5.9 - LDL: 44 Stroke Management: - Continuous cardiac monitoring, loop recorder on d/c if telemetry here unrevealing - Vitals, Neurochecks, NIHSS per unit routine - BP parameters: SBP CAP 180, goal normotension as unclear last seen well - Consult speech, PT, OT for supportive management - Will membership counselor as AMS clears concerning stroke education, smoking cessation, healthy diet, physical activity - Follow up with PCP for assistance with outpatient goals (BP <135/85, LDL <70, A1c <7) - Follow up in neurology clinic in 6-8 weeks Secondary Stroke Prevention: - Antiplatelet: ASA 81mg po daily - Anticoagulation: Not indicated at this time unless Afib noted - Statin: Atorvastatin 40mg daily HTN: - BP parameters, as above FEN/GI: - Diet: NPO until cleared by Speech evaluation (already has NG tube placed) - Monitor lytes and replete PRN Glucose Control: - Sliding scale insulin and accuchecks per primary team to avoid hyperglycemia # Generalized atrophy on MRI: likely 2/2 chronic alcohol abuse. Even if cause of MRI findings are from Binswager disease, treatment would include optimization of cardiac risk factors similar as to general stroke risk factor optimization. # Altered mental status: Improving since yesterday. likely multifactorial in the setting of several new small strokes, malnutrition, pneumonia, UTI, and alcohol abuse with ?withdrawal at home. - continue thiamine (500mg IV x3 days total, then 100mg PO daily thereafter), folate and multivitamin - delirium precautions, lights on during day/off at night, frequent re- orientation - treat infections as already doing - send for ammonia, B12; treat as needed -If he continues to have altered mental status after resolution of his infections, would consider sending serum autoimmune encephalitis panel and obtaining an EEG at that point - neurology clinic follow up will also address any memory concerns (will need appropriate testing once acute issues have resolved) Thank you for this interesting consult. Plan of care was discussed with primary team. Please call with any questions. Will continue to follow peripherally. (2) Altered mental status: Subjective No acute events overnight. He is more alert today and was asking if he can go home. He denied any complaints of headache, chest pain, numbness, abdominal pain. He continues to report weakness in his right upper and lower extremities. Cough improved since yesterday. Review of Systems Review of Systems: Other Unable to obtain complete review of systems due to inattention and tangentiality from altered mental status. Physical Exam Physical Exam: GEN: cachectic man appearing older than state age lying in bed. HEENT: No conjunctival injection, no rhinorrhea CV: RRR on monitor, no peripheral edema PULM: Nonlabored respirations on room air, NG in place INTEG: multiple open sores on bilateral knees Neuro Exam: MS: Awake and Alert. Oriented to person, being in a hospital, not to age, month, year, date or situation. Speech is sparse without clear dysarthria. Can repeat and comprehend basic commands inconsistently. Inattentive. Poor recall on memory testing. + perseveration CN: Blink to threat bilaterally. No extinction to double simultaneous stimuli. Unable to visualize fundi 2/2 pt inability to follow commands consistently. PERRLA OU. EOMI with mild end gaze nystagmus, saccadic intrusions. Facial sen sation intact to LT. Facial muscles full and symmetric. Hearing intact to conversation. Shoulder shrug normal. Tongue midline. Unable to visualize uvula 2/2 exam participation. MOTOR: Decreased muscle bulk, slightly increased tone in the right upper/lower extremities. Antigravity without drift in the LUE/LLE; minimally antigravity in RUE with drift to bed, antigravity with drift to bed in RLE. Strength 4/5 in all muscle groups tested in the RUE/RLEs. REFLEXES: 3+ at biceps, triceps, brachioradialis, patella and 1+ Achilles bilaterally. Toes mute bilaterally SENSORY: Intact to LT throughout, No extinction to double simultaneous stimuli. Decreased vibration in BLEs up to the knees, normal in upper extremities. COORDINATION: No dysmetria or ataxia on [id number] on the left; unable to perform on the right 2/2 weakness. Difficulty following instructions to perform Ten. GAIT: Unable to assess 2/2 mental status and fall risk Results & Data Vital Signs (Past 12 Hours) Vital Signs Temp Pulse Pulse Pulse Resp BP BP 05/14/19 15:16 81 16 05/14/19 12:00 36.9 C 85 18 137/85 05/14/19 11:04 85 18 05/14/19 08:00 66 05/14/19 07:02 36.5 C 78 20 05/14/19 06:54 75 18 05/14/19 05:42 81 147/92 H 05/14/19 04:54 37.0 C 81 20 05/14/19 04:00 79 BP Pulse Ox 05/14/19 15:16 94 05/14/19 12:00 90 05/14/19 11:04 97 05/14/19 08:00 05/14/19 07:02 161/100 H 100 05/14/19 06:54 100 05/14/19 05:42 05/14/19 04:54 147/92 H 99 05/14/19 04:00 PG Care Time/CCT Total # of Minutes Spent Total Time Spent with Patient: Total time spent is greater than 50% in coordination of care (as documented) at patient's floor/unit and/or counseling patient:
[2019-05-15] MEDS: METOPROLOL TARTRATE 1 MG/ML VIAL IV SCH ×4 (00:21→19:09)
[2019-05-15] MEDS: ALBUT/IPRATROP 3MG/0.5MG NEB 3 ML VIAL NEB SCH ×6 (03:32→23:01)
[2019-05-15] MEDS: POTASSIUM CHLORIDE 40 MEQ in SODIUM CHLORIDE 0.45 % 1,000 ML IV SCH ×2 (04:04→16:07)
[2019-05-15] MEDS: PIPERACILLIN/TAZOBACTAM 3.375 GM in DEXTROSE 5% 100 ML IV SCH ×3 (04:04→20:47)
[2019-05-15] MEDS: KETOROLAC TROMETHAMINE 15 MG/ML VIAL IV PRN (05:42)
[2019-05-15] MEDS: THIAMINE HCL 250 MG in SODIUM CHLORIDE 0.9% 50 ML IV SCH (08:12)
[2019-05-15] MEDS: FAMOTIDINE 20 MG in SYRINGE 3 ML IV SCH ×2 (08:12→20:47)
[2019-05-15] MEDS: FOLIC ACID 1 MG in SYRINGE 9.8 ML IV SCH (08:13)
[2019-05-15] MEDS: ENOXAPARIN INJ 30 MG/0.3 ML SYR SQ SCH (08:13)
--- NOTE | 2019-05-15 16:18 | Neurology Progress Note ---
Date of Service May 15, 2019 Assessment & Plan (1) Stroke: Farhat Collins is a 58 yo man w/ PMH of alcohol abuse and HTN who p/t [facility] with altered mental status and poor self care, found to have multiple new strokes in the setting of malnutrition, poor self care and multiple infections (pneumonia, UTI). # Multifocal strokes: Continues to have weakness in the RUE/RLE which is expected given the location of his strokes. Given different vascular territories, c/f cardioembolic source, though lacunar/lipohyalinosis in setting of alcohol withdrawal and uncontrolled HTN could also be possible given MRI findings. 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; does show a new 4x8mm lung nodule - MRI brain: acute to subacute infarcts in the left internal capsule, left centrum semiovale and medial cerebellum; severe generalized atrophy with significant ex vacuo dilation is noted, as well as moderate SVID - TTE: EF 55-60% - Telemetry: pending - A1c: 5.9 - LDL: 44 Stroke Management: - Continuous cardiac monitoring, loop recorder on d/c if telemetry here unrevealing - Vitals, Neurochecks, NIHSS per unit routine - BP parameters: SBP CAP 180, goal normotension - Speech, PT, OT for supportive management - Will student assistance counselor as AMS clears concerning stroke education, smoking cessation, healthy diet, physical activity - Follow up with PCP for assistance with outpatient goals (BP <135/85, LDL <70, A1c <7) - Follow up in neurology clinic in 6-8 weeks Secondary Stroke Prevention: - Antiplatelet: ASA 81mg po daily - Anticoagulation: Not indicated at this time unless Afib noted - Statin: Atorvastatin 40mg daily HTN: - BP parameters, as above FEN/GI: - Diet: NPO until cleared by Speech evaluation (already has NG tube placed) - Monitor lytes and replete PRN Glucose Control: - Sliding scale insulin and accuchecks per primary team to avoid hyperglycemia # Generalized atrophy on MRI: likely 2/2 chronic alcohol abuse. Even if cause of MRI findings are from Binswager disease, treatment would include optimization of cardiac risk factors similar as to general stroke risk factor optimization. # Altered mental status: Worsened since yesterday. Likely multifactorial in the setting of several new small strokes, malnutrition, pneumonia, UTI, and alcohol abuse with ?withdrawal at home. May also be becoming delirious at this point. - continue thiamine (500mg IV x3 days total, then 100mg PO daily thereafter), folate and multivitamin - delirium precautions, lights on during day/off at night, frequent re- orientation - treat infections as already doing - send for ammonia, B12; treat as needed - If he continues to have altered mental status after resolution of his infections, would consider sending serum autoimmune encephalitis panel and obtaining an LP/EEG at that point - neurology clinic follow up will also address any memory concerns (will need appropriate testing once acute issues have resolved) Thank you for this interesting consult. Plan of care was discussed with primary team. Please call with any questions. Will continue to follow peripherally. (2) Altered mental status: Subjective Patient transferred to new room overnight and now has a sitter since he was trying to pull out his NG tube and other lines. He is much drowsier today compared to yesterday and did not interact as much on exam. He was unable to answer review of systems given his mental status. Review of Systems Review of Systems: Unobtainable due to reduced consciousness Physical Exam Physical Exam: GEN: cachectic man appearing older than state age lying in bed. HEENT: No conjunctival injection, no rhinorrhea CV: RRR on monitor, no peripheral edema PULM: Nonlabored respirations on room air, NG in place INTEG: multiple open sores on bilateral knees Neuro Exam: MS: Drowsy, requires frequent stimulation to stay awake. Oriented to person only, not to age, month, year, date or situation. Speech is sparse without clear dysarthria. Can repeat and comprehend basic commands inconsistently. Inattentive. Poor recall on memory testing. + perseveration CN: Blink to threat bilaterally. No extinction to double simultaneous stimuli. Unable to visualize fundi 2/2 pt inability to follow commands consistently. PERRLA OU. EOMI with mild end gaze nystagmus, saccadic intrusions. Facial sensation intact to LT. Facial muscles full and symmetric. Hearing intact to conversation. Shoulder shrug normal. Tongue midline. Unable to visualize uvula 2/2 exam participation. MOTOR: Decreased muscle bulk, slightly increased tone in the right upper/lower extremities. Antigravity without drift in the LUE/LLE; minimally antigravity in RUE with drift to bed, antigravity with drift to bed in RLE. Strength 4-/5 in all muscle groups tested in the RUE/RLEs. REFLEXES: 3+ at biceps, triceps, brachioradialis, patella and 1+ Achilles bilaterally. Toes mute bilaterally SENSORY: Intact to LT throughout, no extinction to double simultaneous stimuli. Decreased vibration in BLEs up to the knees, normal in upper extremities. COORDINATION: Unable to perform 2/2 mental status. Difficulty following instructions to perform Ten. GAIT: Unable to assess 2/2 mental status and fall risk Results & Data Vital Signs (Past 12 Hours) Vital Signs Temp Pulse Pulse Resp BP BP BP 05/15/19 15:24 98 H 18 05/15/19 14:59 37.7 C H 98 H 20 133/90 05/15/19 12:39 102 H 148/81 H 05/15/19 10:58 87 16 05/15/19 07:12 36.7 C 105 H 20 145/84 H 05/15/19 06:54 89 16 05/15/19 06:21 75 142/87 H 05/15/19 05:42 73 150/86 H 05/15/19 05:39 73 150/86 H Pulse Ox 05/15/19 15:24 95 05/15/19 14:59 95 05/15/19 12:39 05/15/19 10:58 94 05/15/19 07:12 94 05/15/19 06:54 95 05/15/19 06:21 05/15/19 05:42 05/15/19 05:39 PG Care Time/CCT Total # of Minutes Spent Total Time Spent with Patient: Total time spent is greater than 50% in coordination of care (as documented) at patient's floor/unit and/or counseling patient:
--- NOTE | 2019-05-15 19:12 | Hospitalist Progress Note ---
Date of Service May 15, 2019 Assessment & Plan (1) AMS (altered mental status): Patient is awake today. 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 Continue monitoring thiamine and folic acid. (2) Multifocal pneumonia: Patient was cleared today by speech and placed on full liquid diet. Continue Zosyn. Patient had NG tube prior to it for issues with swallowing but he pulled it out. As well as his Pickard catheter together with the bulb. (3) Stroke: Appreciate neurology input. Has not shown A. fib, echo without worrisome findings, CT angiograms with basically bilateral 50% carotid stenosis. Check lipids and A1c. Start aspirin once he is able to tolerate, possibly by NG as soon as tomorrow. Secondary risk reduction. PT/OT eval and treat. (4) Elevated troponin: While his history is of questionable veracity he has repeatedly denied chest pain. His echo shows a degree of LVH. Certainly he could have underlying coronary disease, and this may be indicative of demand ischemia from his pneumonia and overall presentation, but certainly nothing appears acute otherwise. Continue to follow closely, continue aspirin as above once he is able to tolerate (5) Dysphasia: Patient is cleared by speech. Now he is on full liquids. (6) Malnutrition: Appears to be at least moderate to may be severe protein and calorie malnutrition as indicated by his low weight is emaciated appearance and his low albumin. Supplement electrolytes and vitamins. Continue IV fluids and full liquid diet for now and advance diet as tolerated. (7) Acute UTI: Versus asymptomatic bacteriuriabut already on Zosyn for lungsgrowing pansensitive Klebsiella (8) Ulcers of both lower extremities: Continue local wound care. No signs of surrounding cellulitis. (9) Alcohol abuse: Is unclear how long he was a drinker or when he quit. In his history of questionable veracity he tells me he quit about a month agoand does reiterate this each time I am able to ask him, but given that I have to ask directed questions its uncertain if he is telling me this because it is true or because I am "leading the witness". Certainly if that is true, and he suffered bad withdrawal, we could be seeing the "fall out" of having gone through DTs at home and now being malnourished/delirious/sick from an aspiration pneumonia, etc. Continue to follow closely. Given that Wernicke-Korsakoff is on the differentialwe are giving not only folate but also high-dose thiamine. Continue to replace these. (10) Hypoglycemia: Treated by EMS has been stable since arrival. Continue to follow (11) DVT prophylaxis: lovenox (12) Discharge planning issues: likely to be here a good while given cormobidities - as getting better will need PT/OT and probably case management. ?placement Subjective No acute events overnight. He is more alert today and was asking if he can go home. He denied any complaints of headache, chest pain, numbness, abdominal pain. He continues to report weakness in his right upper and lower extremities. Cough improved since yesterday. Review of Systems Review of Systems: All systems reviewed & are unremarkable except as noted in HPI & below Physical Exam Constitutional: WD/WN, vitals as above well developed Eyes: PERRL, conjunctivae normal, anicteric sclerae ENMT: external ear and nose normal, oropharynx normal Neck: trachea midline, no thyromegaly Respiratory: normal respiratory effort, lungs clear to auscultation Cardiovascular: Heart Sounds: normal S1, normal S2 and + murmur Gastrointestinal (Abdomen): normal bowel sounds, soft, nontender, no hepatosplenomegaly Musculoskeletal: no cyanosis or clubbing, extremities motor strength 5/5 Skin: no rashes, warm and dry Neurologic: patellar DTR's 2+ bilat, sensation intact Psychiatric: Judgement: + limited judgement Lymphatic: no cervical or axillary lymphadenopathy Results & Data Vital Signs (Past 12 Hours) Vital Signs Temp Pulse Pulse Resp BP BP Pulse Ox 05/15/19 19:08 91 H 18 95 05/15/19 15:24 98 H 18 95 05/15/19 14:59 37.7 C H 98 H 20 133/90 95 05/15/19 12:39 102 H 148/81 H 05/15/19 10:58 87 16 94 05/15/19 07:12 36.7 C 105 H 20 145/84 H 94 PG Care Time/CCT Total # of Minutes Spent Total Time Spent with Patient: Total time spent is greater than 50% in coordination of care (as documented) at patient's floor/unit and/or counseling patient: (1) AMS (altered mental status) Altered mental status type: unspecified Qualified Code(s): R41.82 - Altered mental status, unspecified
[2019-05-16] MEDS: METOPROLOL TARTRATE 1 MG/ML VIAL IV SCH ×4 (00:08→17:34)
[2019-05-16] MEDS: ALBUT/IPRATROP 3MG/0.5MG NEB 3 ML VIAL NEB SCH ×6 (03:11→23:46)
[2019-05-16] MEDS: PIPERACILLIN/TAZOBACTAM 3.375 GM in DEXTROSE 5% 100 ML IV SCH ×3 (03:30→19:58)
[2019-05-16] MEDS: POTASSIUM CHLORIDE 40 MEQ in SODIUM CHLORIDE 0.45 % 1,000 ML IV SCH ×2 (03:30→15:43)
[2019-05-16 05:52] LABS: Basophils # (auto) 0.01 K/uL (0-0.2); Basophils % (auto) 0.2 %; Eosinophils # (auto) 0.03 K/uL (0-0.5); Eosinophils % (auto) 0.7 %; Hematocrit (blood only) 31.1 % (42-52); Hemoglobin 10.8 g/dL (14.0-18.0); Immature Granulocytes # (auto) 0.01 K/uL (0.00-0.02); Immature Granulocytes % (auto) 0.2 %; Lymphocytes # (auto) 0.51 K/uL (1.2-3.4); Lymphocytes % (auto) 11.6 %; Mean Corpuscular Hgb Conc 34.7 g/dL (32-36); Mean Corpuscular Volume 97.8 fL (80-100); Mean Platelet Volume 9.7 fL (7.4-10.4); Monocytes # (auto) 0.25 K/uL (0.11-0.59); Monocytes % (auto) 5.7 %; Neutrophils # (auto) 3.58 K/uL (1.4-6.5); Neutrophils % (auto) 81.6 %; Platelet Count 170 K/uL (130-400); RDW Coefficient of Variation 14.1 % (11.5-14.5); RDW Standard Deviation 50.6 fL (36.4-46.3); Red Blood Count 3.18 M/uL (4.7-6.1); White Blood Count 4.39 K/uL (4.8-10.8)
[2019-05-16 06:34] LABS: Albumin Level 1.6 gm/dl (3.4-5.0); BUN Creatinine Ratio 16.2 (10-20); Calcium 8.2 mg/dl (8.5-10.1); Creatinine Clr Calc Pharmacy 122.7 ml/min; Est GFR (African American) 144.9; Potassium 3.3 mmol/L (3.5-5.1)
[2019-05-16 06:45] LABS: Albumin Globulin Ratio 0.4 (0.9-2); Bilirubin,Total 0.6 mg/dl (0.2-1); Globulin 4.4 gm/dl (2.5-4.0); Thyroid Stimulating Hormone 3.9 uIu/ml (0.300-4.500)
[2019-05-16] MEDS: FOLIC ACID 1 MG in SYRINGE 9.8 ML IV SCH (08:00)
[2019-05-16] MEDS: ENOXAPARIN INJ 30 MG/0.3 ML SYR SQ SCH (08:00)
[2019-05-16] MEDS: THIAMINE HCL 250 MG in SODIUM CHLORIDE 0.9% 50 ML IV SCH (08:03)
[2019-05-16] MEDS: FAMOTIDINE 20 MG in SYRINGE 3 ML IV SCH (08:03)
[2019-05-16] MEDS: COLLAGENASE OINT 30 GM TUBE EXT SCH (13:27)
[2019-05-16] MEDS: ASPIRIN 81 MG ECTAB PO SCH (13:27)
[2019-05-16] MEDS: ATORVASTATIN 40 MG TAB PO SCH (13:27)
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
--- NOTE | 2019-05-16 14:52 | Neurology Progress Note ---
Date of Service May 16, 2019 Assessment & Plan (1) Stroke: Farhat Collins is a 58 yo man w/ PMH of alcohol abuse and HTN who p/t [facility] with altered mental status and poor self care, found to have multiple new strokes in the setting of malnutrition, poor self care and multiple infections (pneumonia, UTI). # Multifocal strokes: Continues to have weakness in the RUE/RLE which is expected given the location of his strokes. Given different vascular territories, c/f cardioembolic source, though lacunar/lipohyalinosis in setting of alcohol withdrawal and uncontrolled HTN could also be possible given MRI findings. 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; does show a new 4x8mm lung nodule - MRI brain: acute to subacute infarcts in the left internal capsule, left centrum semiovale and medial cerebellum; severe generalized atrophy with significant ex vacuo dilation is noted, as well as moderate SVID - TTE: EF 55-60% - Telemetry: pending (no Afib so far) - A1c: 5.9 - LDL: 44 Stroke Management: - Continuous cardiac monitoring, loop recorder on d/c if telemetry here unrevealing - Vitals, Neurochecks, NIHSS per unit routine - BP parameters: SBP CAP 180, goal normotension - Speech, PT, OT for supportive management - Will sexual assault counsellor as AMS clears concerning stroke education, smoking cessation, healthy diet, physical activity - Follow up with PCP for assistance with outpatient goals (BP <135/85, LDL <70, A1c <7) - Follow up in neurology clinic in 6-8 weeks Secondary Stroke Prevention: - Antiplatelet: ASA 81mg po daily - Anticoagulation: Not indicated at this time unless Afib noted - Statin: Atorvastatin 40mg daily # Generalized atrophy on MRI: likely 2/2 chronic alcohol abuse. Even if cause of MRI findings are from Binswager disease, treatment would include optimization of cardiac risk factors similar as to general stroke risk factor optimization. # Altered mental status: Slightly improved, waxing/waning. Likely multifactorial in the setting of several new small strokes, malnutrition, pneumonia, UTI, and alcohol abuse with ?withdrawal at home. Waxing/waning suggests component of delirium. Likely also has Wernicke's encephalopathy. NH3 23.8 (WNL) and B12 >1000. - continue thiamine (500mg IV x3 days total, then 100mg PO daily thereafter), folate and multivitamin - delirium precautions, lights on during day/off at night, frequent re- orientation - treat infections as already doing - neurology clinic follow up will also address any memory concerns (will need appropriate testing once acute issues have resolved) Thank you for this interesting consult. Plan of care was discussed with primary team. Please call with any questions. Will continue to follow peripherally. (2) Altered mental status: Subjective Farhat is more alert today and continues to have a sitter to prevent him from pulling on tubes or lines. He denies having any complaints today. He was more interactive during the exam Review of Systems Review of Systems: Unobtainable due to cognitive status Physical Exam Physical Exam: GEN: cachectic man appearing older than state age lying in bed. HEENT: No conjunctival injection, no rhinorrhea CV: RRR on monitor, no peripheral edema PULM: Nonlabored respirations on room air INTEG: multiple sores on bilateral knees Neuro Exam: MS: Awake and Alert. Oriented to person, being in a hospital, not to age, month, year, date or situation. Speech is sparse without clear dysarthria. Can repeat and comprehend basic commands inconsistently. Inattentive. Poor recall on memory testing. + perseveration CN: Blink to threat bilaterally. No extinction to double simultaneous stimuli. Unable to visualize fundi 2/2 pt inability to follow commands consistently. PERRLA OU. EOMI with mild end gaze nystagmus, saccadic intrusions. Facial sensation intact to LT. Facial muscles full and symmetric. Hearing intact to conversation. Shoulder shrug normal. Tongue midline. Unable to visualize uvula 2/2 exam participation. MOTOR: Decreased muscle bulk, slightly increased tone in the right upper/lower extremities. Antigravity without drift in the LUE/LLE; minimally antigravity in RUE with drift to bed, antigravity with drift to bed in RLE. Strength 4+/5 in all muscle groups tested in the RUE/RLEs. REFLEXES: 3+ at biceps, triceps, brachioradialis, patella and 1+ Achilles bilaterally. Toes mute bilaterally SENSORY: Intact to LT throughout, no extinction to double simultaneous stimuli. Decreased vibration in BLEs up to the knees, normal in upper extremities. COORDINATION: No dysmetria or ataxia on [id number] on the left; unable to perform on the right 2/2 weakness. Difficulty following instructions to perform Ten. GAIT: Unable to assess 2/2 mental status and fall risk Results & Data Vital Signs (Past 12 Hours) Vital Signs Temp Pulse Pulse Resp BP BP Pulse Ox 05/16/19 11:35 78 140/88 05/16/19 11:16 89 16 95 05/16/19 07:19 36.7 C 83 20 148/88 H 97 05/16/19 06:53 85 16 94 05/16/19 05:54 86 150/88 H 05/16/19 05:53 86 150/88 H 05/16/19 03:11 83 16 94 PG Care Time/CCT Total # of Minutes Spent Total Time Spent with Patient: Total time spent is greater than 50% in coordination of care (as documented) at patient's floor/unit and/or counseling patient:
--- NOTE | 2019-05-16 15:51 | Hospitalist Progress Note ---
Date of Service May 16, 2019 Assessment & Plan (1) Stroke: Appreciate neurology recommendations:Multifocal strokes: Continues to have weakness in the RUE/RLE which is expected given the location of his strokes. Given different vascular territories, c/f cardioembolic source, though lacuna r/lipohyalinosis in setting of alcohol withdrawal and uncontrolled HTN could also be possible given MRI findings. Continuous cardiac monitoring, loop recorder on d/c if telemetry here unrevealing Vitals, Neurochecks, NIHSS per unit routine BP parameters: SBP CAP 180, goal normotension Speech, PT, OT for supportive management Will college and career counselor as AMS clears concerning stroke education, smoking cessation, healthy diet, physical activity Follow up with PCP for assistance with outpatient goals (BP <135/85, LDL <70, A1c <7) Follow up in neurology clinic in 6-8 weeks Secondary Stroke Prevention: Antiplatelet: ASA 81mg po daily Anticoagulation: Not indicated at this time unless Afib noted Statin: Atorvastatin 40mg daily Generalized atrophy on MRI: likely 2/2 chronic alcohol abuse. Even if cause of MRI findings are from Binswager disease, treatment would include optimization of cardiac risk factors similar as to general stroke risk factor optimization. Present on Admission?: Yes (2) Altered mental status: Altered mental status: Slightly improved, waxing/waning. Likely multifactorial in the setting of several new small strokes, malnutrition, pneumonia, UTI, and alcohol abuse with ?withdrawal at home. Waxing/waning suggests component of delirium. Likely also has Wernicke's encephalopathy. NH3 23.8 (WNL) and B12 >1000. continue thiamine (500mg IV x3 days total, then 100mg PO daily thereafter), folate and multivitamin delirium precautions, lights on during day/off at night, frequent re-orientation treat infections as already doing neurology clinic follow up will also address any memory concerns (will need appropriate testing once acute issues have resolved) Present on Admission?: Yes (3) Dysphasia: Continue speech study follow up. Present on Admission?: Yes (4) Multifocal pneumonia: Multifocal pneumonia: Aspiration versus community-acquiredsince MRSA nares was negative, continue Zosyn will cover for both. Certainly there is high concern on aspiration given his overall inability to swallow safely. Fortunately this does appear to be improving. Present on Admission?: Yes Subjective Patient seen and examined at the bedside.No acute events overnight. He is more alert today and was asking if he can go home. He denied any complaints of headache, chest pain, numbness, abdominal pain. He continues to report weakness in his right upper and lower extremities. Cough is slowly improving. Patient is poor historian. Review of Systems Review of Systems: All systems reviewed & are unremarkable except as noted in HPI & below Physical Exam Constitutional: WD/WN, vitals as above well developed Eyes: PERRL, conjunctivae normal, anicteric sclerae ENMT: external ear and nose normal, oropharynx normal Neck: trachea midline, no thyromegaly Respiratory: normal respiratory effort, lungs clear to auscultation Cardiovascular: Heart Sounds: normal S1, normal S2 and + murmur Gastrointestinal (Abdomen): normal bowel sounds, soft, nontender, no hepatosplenomegaly Musculoskeletal: no cyanosis or clubbing, extremities motor strength 5/5 Skin: no rashes, warm and dry Neurologic: patellar DTR's 2+ bilat, sensation intact Psychiatric: Judgement: + limited judgement Lymphatic: no cervical or axillary lymphadenopathy Results & Data Vital Signs (Past 12 Hours) Vital Signs Temp Pulse Pulse Resp BP BP Pulse Ox 05/16/19 11:35 78 140/88 05/16/19 11:16 89 16 95 05/16/19 07:19 36.7 C 83 20 148/88 H 97 05/16/19 06:53 85 16 94 05/16/19 05:54 86 150/88 H 05/16/19 05:53 86 150/88 H PG Care Time/CCT Total # of Minutes Spent Total Time Spent with Patient: Total time spent is greater than 50% in coordination of care (as documented) at patient's floor/unit and/or counseling patient:
[2019-05-16] MEDS ORDERED: POTASSIUM CHLORIDE 20 MEQ TABCR PO STA (16:17)
--- NOTE | 2019-05-16 16:33 | XRay Report ---
XR chest 1V portable CLINICAL HISTORY: acute exacerbation of CHF COMPARISON STUDY: 05/10/2019 FINDINGS: The cardiac and mediastinal contours remain stable. There are asymmetric airspace opacities left greater than right. Diagnostic considerations include pneumonia versus asymmetric pulmonary francisco ma. Clinical and radiographic follow-up is recommended.[There are trace pleural effusions. There is a n old left-sided rib fracture. IMPRESSION: Persistent asymmetric pulmonary airspace opacities left greater than right. Diagnostic co nsiderations include pneumonia versus asymmetric pulmonary edema. Electronically signed by: Pepito Vieira M.D. 05/16/2019 4:32 PM
[2019-05-16] MEDS: FUROSEMIDE 20 MG in SYRINGE 0 ML IV SCH (21:32)
[2019-05-17] MEDS: METOPROLOL TARTRATE 1 MG/ML VIAL IV SCH ×3 (00:23→12:49)
[2019-05-17] MEDS: ALBUT/IPRATROP 3MG/0.5MG NEB 3 ML VIAL NEB SCH ×6 (03:12→23:22)
[2019-05-17 06:25] LABS: Basophils # (auto) 0.02 K/uL (0-0.2); Basophils % (auto) 0.4 %; Eosinophils # (auto) 0.03 K/uL (0-0.5); Eosinophils % (auto) 0.5 %; Hematocrit (blood only) 32.1 % (42-52); Hemoglobin 11.2 g/dL (14.0-18.0); Immature Granulocytes # (auto) 0.01 K/uL (0.00-0.02); Immature Granulocytes % (auto) 0.2 %; Lymphocytes # (auto) 0.59 K/uL (1.2-3.4); Lymphocytes % (auto) 10.5 %; Mean Corpuscular Hemoglobin 34.4 pg (25-34); Mean Corpuscular Hgb Conc 34.9 g/dL (32-36); Mean Corpuscular Volume 98.5 fL (80-100); Mean Platelet Volume 9.9 fL (7.4-10.4); Monocytes # (auto) 0.42 K/uL (0.11-0.59); Monocytes % (auto) 7.5 %; Neutrophils # (auto) 4.54 K/uL (1.4-6.5); Neutrophils % (auto) 80.9 %; Platelet Count 192 K/uL (130-400); RDW Coefficient of Variation 14.2 % (11.5-14.5); Red Blood Count 3.26 M/uL (4.7-6.1); White Blood Count 5.61 K/uL (4.8-10.8)
[2019-05-17 07:08] LABS: Albumin Level 1.8 gm/dl (3.4-5.0); Calcium 8.5 mg/dl (8.5-10.1); Est GFR (African American) 143.6; Est GFR (Non-African American) 123.9; Potassium 3.2 mmol/L (3.5-5.1)
[2019-05-17 07:12] LABS: Albumin Globulin Ratio 0.4 (0.9-2); Bilirubin,Total 0.5 mg/dl (0.2-1); Globulin 4.7 gm/dl (2.5-4.0); Total Protein 6.5 gm/dl (6.4-8.2)
[2019-05-17] MEDS: ASPIRIN 81 MG ECTAB PO SCH (08:33)
[2019-05-17] MEDS: FUROSEMIDE 20 MG in SYRINGE 0 ML IV SCH ×2 (08:33→20:31)
[2019-05-17] MEDS: THIAMINE HCL 250 MG in SODIUM CHLORIDE 0.9% 50 ML IV SCH (08:33)
[2019-05-17] MEDS: ATORVASTATIN 40 MG TAB PO SCH (08:33)
[2019-05-17] MEDS: FAMOTIDINE 20 MG TAB PO SCH (08:33)
[2019-05-17] MEDS: POTASSIUM CHLORIDE 20 MEQ TABCR PO SCH (08:33)
[2019-05-17] MEDS: FOLIC ACID 1 MG TAB PO SCH (08:33)
[2019-05-17] MEDS: ENOXAPARIN INJ 30 MG/0.3 ML SYR SQ SCH (08:33)
[2019-05-17] MEDS: COLLAGENASE OINT 30 GM TUBE EXT SCH (08:34)
--- NOTE | 2019-05-17 18:17 | Hospitalist Progress Note ---
Date of Service May 17, 2019 Assessment & Plan (1) Stroke: Appreciate neurology recommendations:Multifocal strokes: Continues to have weakness in the RUE/RLE which is expected given the location of his strokes. Given different vascular territories, c/f cardioembolic source, though lacuna r/lipohyalinosis in setting of alcohol withdrawal and uncontrolled HTN could also be possible given MRI findings. Continuous cardiac monitoring, loop recorder on d/c if telemetry here unrevealing Vitals, Neurochecks, NIHSS per unit routine BP parameters: SBP CAP 180, goal normotension Speech, PT, OT for supportive management Will correctional counselor as AMS clears concerning stroke education, smoking cessation, healthy diet, physical activity Follow up with PCP for assistance with outpatient goals (BP <135/85, LDL <70, A1c <7) Follow up in neurology clinic in 6-8 weeks Secondary Stroke Prevention: Antiplatelet: ASA 81mg po daily Anticoagulation: Not indicated at this time unless Afib noted Statin: Atorvastatin 40mg daily Generalized atrophy on MRI: likely 2/2 chronic alcohol abuse. Even if cause of MRI findings are from Binswager disease, treatment would include optimization of cardiac risk factors similar as to general stroke risk factor optimization. (2) Altered mental status: Altered mental status: Slightly improved, waxing/waning. Likely multifactorial in the setting of several new small strokes, malnutrition, pneumonia, UTI, and alcohol abuse with ?withdrawal at home. Waxing/waning suggests component of delirium. Likely also has Wernicke's encephalopathy. NH3 23.8 (WNL) and B12 >1000. continue thiamine (500mg IV x3 days total, then 100mg PO daily thereafter), folate and multivitamin delirium precautions, lights on during day/off at night, frequent re-orientation treat infections as already doing neurology clinic follow up will also address any memory concerns (will need appropriate testing once acute issues have resolved) (3) Dysphasia: Continue speech study follow up. (4) Multifocal pneumonia: Multifocal pneumonia: Aspiration versus community-acquiredsince MRSA nares was negative, continue Zosyn will cover for both. Certainly there is high concern on aspiration given his overall inability to swallow safely. Fortunately this does appear to be improving. Subjective Patient seen and examined at the bedside.No acute events overnight. He is more alert today and was asking if he can go home. He denied any complaints of headache, chest pain, numbness, abdominal pain. He continues to report weakness in his right upper and lower extremities. Cough is slowly improving. Patient is poor historian. Review of Systems Review of Systems: All systems reviewed & are unremarkable except as noted in HPI & below Physical Exam Constitutional: WD/WN, vitals as above well developed Eyes: PERRL, conjunctivae normal, anicteric sclerae ENMT: external ear and nose normal, oropharynx normal Neck: trachea midline, no thyromegaly Respiratory: normal respiratory effort, lungs clear to auscultation Cardiovascular: Heart Sounds: normal S1, normal S2 and + murmur Gastrointestinal (Abdomen): normal bowel sounds, soft, nontender, no hepa tosplenomegaly Musculoskeletal: no cyanosis or clubbing, extremities motor strength 5/5 Skin: no rashes, warm and dry Neurologic: patellar DTR's 2+ bilat, sensation intact Psychiatric: Judgement: + limited judgement Lymphatic: no cervical or axillary lymphadenopathy Results & Data Vital Signs (Past 12 Hours) Vital Signs Temp Pulse Pulse Resp BP BP BP 05/17/19 16:00 36.8 C 05/17/19 15:44 101 H 16 05/17/19 15:07 37.8 C H 95 H 16 117/67 05/17/19 12:49 118 H 113/77 05/17/19 12:48 118 H 113/77 05/17/19 11:10 109 H 18 05/17/19 07:11 36.9 C 84 18 128/81 05/17/19 07:08 86 18 Pulse Ox 05/17/19 16:00 05/17/19 15:44 98 05/17/19 15:07 95 05/17/19 12:49 05/17/19 12:48 05/17/19 11:10 94 05/17/19 07:11 95 05/17/19 07:08 96 PG Care Time/CCT Total # of Minutes Spent Total Time Spent with Patient: Total time spent is greater than 50% in coordination of care (as documented) at patient's floor/unit and/or counseling patient:
[2019-05-17] MEDS: METOPROLOL TARTRATE 25 MG TAB PO SCH (20:36)
[2019-05-18] MEDS: ALBUT/IPRATROP 3MG/0.5MG NEB 3 ML VIAL NEB SCH ×2 (04:06→07:36)
[2019-05-18 05:58] LABS: Basophils # (auto) 0.01 K/uL (0-0.2); Basophils % (auto) 0.1 %; Eosinophils # (auto) 0.06 K/uL (0-0.5); Eosinophils % (auto) 0.9 %; Hematocrit (blood only) 33.2 % (42-52); Hemoglobin 11.5 g/dL (14.0-18.0); Immature Granulocytes # (auto) 0.02 K/uL (0.00-0.02); Immature Granulocytes % (auto) 0.3 %; Lymphocytes # (auto) 0.76 K/uL (1.2-3.4); Lymphocytes % (auto) 11.2 %; Mean Corpuscular Hemoglobin 34.2 pg (25-34); Mean Corpuscular Hgb Conc 34.6 g/dL (32-36); Mean Corpuscular Volume 98.8 fL (80-100); Mean Platelet Volume 9.7 fL (7.4-10.4); Monocytes # (auto) 0.44 K/uL (0.11-0.59); Monocytes % (auto) 6.5 %; Neutrophils # (auto) 5.49 K/uL (1.4-6.5); Platelet Count 246 K/uL (130-400); RDW Coefficient of Variation 14.3 % (11.5-14.5); RDW Standard Deviation 51.5 fL (36.4-46.3); Red Blood Count 3.36 M/uL (4.7-6.1); White Blood Count 6.78 K/uL (4.8-10.8)
[2019-05-18 06:48] LABS: Albumin Level 1.9 gm/dl (3.4-5.0); BUN Creatinine Ratio 34.6 (10-20); Calcium 8.6 mg/dl (8.5-10.1); Est GFR (African American) 143.6; Est GFR (Non-African American) 123.9; Potassium 3.2 mmol/L (3.5-5.1)
[2019-05-18 06:53] LABS: Albumin Globulin Ratio 0.4 (0.9-2); Bilirubin,Total 0.5 mg/dl (0.2-1); Total Protein 6.9 gm/dl (6.4-8.2)
[2019-05-18] MEDS: ASPIRIN 81 MG ECTAB PO SCH (08:08)
[2019-05-18] MEDS: FOLIC ACID 1 MG TAB PO SCH (08:08)
[2019-05-18] MEDS: ATORVASTATIN 40 MG TAB PO SCH (08:08)
[2019-05-18] MEDS: POTASSIUM CHLORIDE 20 MEQ TABCR PO SCH (08:08)
[2019-05-18] MEDS: FAMOTIDINE 20 MG TAB PO SCH (08:08)
[2019-05-18] MEDS: COLLAGENASE OINT 30 GM TUBE EXT SCH (08:09)
[2019-05-18] MEDS: METOPROLOL TARTRATE 25 MG TAB PO SCH ×2 (08:09→20:27)
[2019-05-18] MEDS: ENOXAPARIN INJ 30 MG/0.3 ML SYR SQ SCH (08:09)
[2019-05-18] MEDS: FUROSEMIDE 20 MG in SYRINGE 0 ML IV SCH ×2 (08:09→20:27)
[2019-05-18] MEDS: THIAMINE HCL 250 MG in SODIUM CHLORIDE 0.9% 50 ML IV SCH (08:20)
[2019-05-18] MEDS: KETOROLAC TROMETHAMINE 15 MG/ML VIAL IV PRN (09:52)
--- NOTE | 2019-05-18 16:33 | Neurology Progress Note ---
Date of Service May 18, 2019 Assessment & Plan (1) Stroke: Farhat Collins is a 58 yo man w/ PMH of alcohol abuse and HTN who p/t [facility] with altered mental status and poor self care, found to have multiple new strokes in the setting of malnutrition, poor self care and multiple infections (pneumonia, UTI). # Multifocal strokes: Continues to have weakness in the RUE/RLE which is expected given the location of his strokes. Given different vascular territories, c/f cardioembolic source, though lacunar/lipohyalinosis in setting of alcohol withdrawal and uncontrolled HTN could also be possible given MRI findings. 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 Unclear if you would be a stroke rehab candidate; that would be the preferred discharge if possible -Right-sided strength is worsening as he has been in bed for the most part this last week. Would recommend having physical therapy work with him at least every other day and getting him to the chair for meals. - Will chromosomal disorders counselor as AMS clears concerning stroke education, smoking cessation, healthy diet, physical activity - Follow up with PCP for assistance with outpatient goals (BP <135/85, LDL <70, A1c <7) - Follow up in neurology clinic in 6-8 weeks Secondary Stroke Prevention: - Antiplatelet: ASA 81mg po daily - Anticoagulation: Not indicated at this time unless Afib noted - Statin: Atorvastatin 40mg daily # Generalized atrophy on MRI: likely 2/2 chronic alcohol abuse. Even if cause of MRI findings are from Binswager disease, treatment would include optimization of cardiac risk factors similar as to general stroke risk factor optimization. # Altered mental status: Stable, waxing/waning. Likely multifactorial in the setting of several new small strokes, malnutrition, pneumonia, UTI, and alcohol abuse with ?withdrawal at home and Wernicke's. Waxing/waning suggests component of delirium at this time. NH3 23.8 (WNL) and B12 >1000. - continue thiamine 100mg PO daily, folate and multivitamin - delirium precautions, lights on during day/off at night, frequent re- orientation, up in bed or chair during the day if possible/safe - treat infections as already doing - neurology clinic follow up to also address any memory concerns (will need appropriate testing once acute issues have resolved) Thank you for this interesting consult. Please call with any questions. Will continue to follow peripherally. Please note that Dr Whyte will be taking over care on 05/19. (2) Altered mental status: Subjective No acute events overnight. He denies any complaints at time of examination. His cough is improved. He continues to be disoriented and tangential. Review of Systems Review of Systems: Unable to obtain complete review of systems due to inattention and tangentiality from altered mental status. Physical Exam Physical Exam: GEN: cachectic man appearing older than state age lying in bed. HEENT: No conjunctival injection, no rhinorrhea CV: RRR on monitor, no peripheral edema PULM: Nonlabored respirations on room air INTEG: multiple sores on bilateral knees Neuro Exam: MS: Awake and Alert. Oriented to person, being in a hospital, not to age, month, year, date or situation. Speech is sparse without clear dysarthria. Can repeat and comprehend basic commands inconsistently. Inattentive. Poor recall on memory testing. + perseveration. Unable to name even common objects. Gave 0 animals when asked to name as many in 1 minute. Disinhibited CN: Blink to threat bilaterally. No extinction to double simultaneous stimuli. Unable to visualize fundi 2/2 pt inability to follow commands consistently. PERRLA OU. EOMI with mild end gaze nystagmus (likely physiologic), saccadic intrusions. Facial sensation intact to LT. Facial muscles full and symmetric. Hearing intact to conversation. Shoulder shrug normal. Tongue midline. Unable to visualize uvula 2/2 exam participation. MOTOR: Decreased muscle bulk, slightly increased tone in the right upper/lower extremities. Antigravity without drift in the LUE/LLE; minimally antigravity in RUE with drift to bed, antigravity with drift to bed in RLE. Strength 4-/5 in all muscle groups tested in the RUE/RLEs. REFLEXES: 3+ at biceps, triceps, brachioradialis, patella and 1+ Achilles bilaterally. Toes mute bilaterally SENSORY: Intact to LT throughout, no extinction to double simultaneous stimuli. Decreased vibration in BLEs up to the knees, normal in upper extremities. COORDINATION: No dysmetria or ataxia on [id number] on the left; unable to perform on the right 2/2 weakness. Difficulty following instructions to perform Ten. GAIT: Unable to assess 2/2 mental status and fall risk Results & Data Vital Signs (Past 12 Hours) Vital Signs Temp Pulse Pulse Resp BP BP Pulse Ox 05/18/19 14:51 36.7 C 106 H 24 101/67 92 05/18/19 07:38 95 H 16 95 05/18/19 07:16 36.9 C 95 H 20 111/80 94 PG Care Time/CCT Total # of Minutes Spent Total Time Spent with Patient: Total time spent is greater than 50% in coordination of care (as documented) at patient's floor/unit and/or counseling patient:
--- NOTE | 2019-05-18 17:23 | Hospitalist Progress Note ---
Date of Service May 18, 2019 Assessment & Plan (1) Stroke: Appreciate neurology recommendations:Multifocal strokes: Continues to have weakness in the RUE/RLE which is expected given the location of his strokes. Given different vascular territories, c/f cardioembolic source, though lacuna r/lipohyalinosis in setting of alcohol withdrawal and uncontrolled HTN could also be possible given MRI findings. Continuous cardiac monitoring, loop recorder on d/c if telemetry here unrevealing Vitals, Neurochecks, NIHSS per unit routine BP parameters: SBP CAP 180, goal normotension Speech, PT, OT for supportive management Will estate planning counselor as AMS clears concerning stroke education, smoking cessation, healthy diet, physical activity Follow up with PCP for assistance with outpatient goals (BP <135/85, LDL <70, A1c <7) Follow up in neurology clinic in 6-8 weeks Secondary Stroke Prevention: Antiplatelet: ASA 81mg po daily Anticoagulation: Not indicated at this time unless Afib noted Statin: Atorvastatin 40mg daily Generalized atrophy on MRI: likely 2/2 chronic alcohol abuse. Even if cause of MRI findings are from Binswager disease, treatment would include optimization of cardiac risk factors similar as to general stroke risk factor optimization. (2) Altered mental status: Altered mental status: Slightly improved, waxing/waning. Likely multifactorial in the setting of several new small strokes, malnutrition, pneumonia, UTI, and alcohol abuse with ?withdrawal at home. Waxing/waning suggests component of delirium. Likely also has Wernicke's encephalopathy. NH3 23.8 (WNL) and B12 >1000. continue thiamine (500mg IV x3 days total, then 100mg PO daily thereafter), folate and multivitamin delirium precautions, lights on during day/off at night, frequent re-orientation treat infections as already doing neurology clinic follow up will also address any memory concerns (will need appropriate testing once acute issues have resolved) (3) Dysphasia: Continue speech study follow up. (4) Multifocal pneumonia: Multifocal pneumonia: Aspiration versus community-acquiredsince MRSA nares was negative, continue Zosyn will cover for both. Certainly there is high concern on aspiration given his overall inability to swallow safely. Fortunately this does appear to be improving. Subjective Patient seen and examined at the bedside.No acute events overnight. He is more alert today and was asking if he can go home. He denied any complaints of headache, chest pain, numbness, abdominal pain. He continues to report weakness in his right upper and lower extremities. Cough is slowly improving. Patient is poor historian. Review of Systems Review of Systems: All systems reviewed & are unremarkable except as noted in HPI & below Physical Exam Constitutional: WD/WN, vitals as above well developed Eyes: PERRL, conjunctivae normal, anicteric sclerae ENMT: external ear and nose normal, oropharynx normal Neck: trachea midline, no thyromegaly Respiratory: normal respiratory effort, lungs clear to auscultation Cardiovascular: Heart Sounds: normal S1, normal S2 and + murmur Gastrointestinal (Abdomen): normal bowel sounds, soft, nontender, no hepa tosplenomegaly Musculoskeletal: no cyanosis or clubbing, extremities motor strength 5/5 Skin: no rashes, warm and dry Neurologic: patellar DTR's 2+ bilat, sensation intact Psychiatric: Judgement: + limited judgement Lymphatic: no cervical or axillary lymphadenopathy Results & Data Vital Signs (Past 12 Hours) Vital Signs Temp Pulse Pulse Resp BP BP Pulse Ox 05/18/19 14:51 36.7 C 106 H 24 101/67 92 05/18/19 07:38 95 H 16 95 05/18/19 07:16 36.9 C 95 H 20 111/80 94 PG Care Time/CCT Total # of Minutes Spent Total Time Spent with Patient: Total time spent is greater than 50% in coordination of care (as documented) at patient's floor/unit and/or counseling patient:
[2019-05-18] MEDS: ACETAMINOPHEN 325 MG TAB PO PRN (20:25)
[2019-05-19] MEDS: ACETAMINOPHEN 325 MG TAB PO PRN (01:29)
[2019-05-19] MEDS: ENOXAPARIN INJ 30 MG/0.3 ML SYR SQ SCH (08:52)
[2019-05-19] MEDS: ASPIRIN 81 MG ECTAB PO SCH (08:53)
[2019-05-19] MEDS: FOLIC ACID 1 MG TAB PO SCH (08:53)
[2019-05-19] MEDS: METOPROLOL TARTRATE 25 MG TAB PO SCH ×2 (08:53→20:11)
[2019-05-19] MEDS: ATORVASTATIN 40 MG TAB PO SCH (08:53)
[2019-05-19] MEDS: POTASSIUM CHLORIDE 20 MEQ TABCR PO SCH (08:53)
[2019-05-19] MEDS: FUROSEMIDE 20 MG in SYRINGE 0 ML IV SCH ×2 (08:53→20:02)
[2019-05-19] MEDS: THIAMINE HCL 250 MG in SODIUM CHLORIDE 0.9% 50 ML IV SCH ×2 (08:54→09:39)
[2019-05-19] MEDS: FAMOTIDINE 20 MG TAB PO SCH (08:54)
[2019-05-19] MEDS: COLLAGENASE OINT 30 GM TUBE EXT SCH (09:25)
--- NOTE | 2019-05-19 11:33 | Hospitalist Progress Note ---
Date of Service May 19, 2019 Assessment & Plan (1) Fever: Patient started to have fever of 37.8. Given Tylenol. We will do septic work-up since patient prone to pneumonia including aspiration. Plan to do blood cultures, chest x-rays, lactic acid and procalcitonin. We will start empirically cefepime and metronidazole for possibly aspiration pneumonia. Present on Admission?: Yes (2) Stroke: Appreciate neurology recommendations:Multifocal strokes: Continues to have weakness in the RUE/RLE which is expected given the location of his strokes. Given different vascular territories, c/f cardioembolic source, though lacunar/lipohyalinosis in setting of alcohol withdrawal and uncontrolled HTN could also be possible given MRI findings. Continuous cardiac monitoring, loop recorder on d/c if telemetry here unrevealing Vitals, Neurochecks, NIHSS per unit routine BP parameters: SBP CAP 180, goal normotension Speech, PT, OT for supportive management Will enrollment counselor as AMS clears concerning stroke education, smoking cessation, healthy diet, physical activity Follow up with PCP for assistance with outpatient goals (BP <135/85, LDL <70, A1c <7) Follow up in neurology clinic in 6-8 weeks Secondary Stroke Prevention: Antiplatelet: ASA 81mg po daily Anticoagulation: Not indicated at this time unless Afib noted Statin: Atorvastatin 40mg daily Generalized atrophy on MRI: likely 2/2 chronic alcohol abuse. Even if cause of MRI findings are from Binswager disease, treatment would include optimization of cardiac risk factors similar as to general stroke risk factor optimization. (3) Altered mental status: Altered mental status: Slightly improved, waxing/waning. Likely multifactorial in the setting of several new small strokes, malnutrition, pneumonia, UTI, and alcohol abuse with ?withdrawal at home. Waxing/waning suggests component of delirium. Likely also has Wernicke's encephalopathy. NH3 23.8 (WNL) and B12 >1000. continue thiamine (500mg IV x3 days total, then 100mg PO daily thereafter), folate and multivitamin delirium precautions, lights on during day/off at night, frequent re-orientation treat infections as already doing neurology clinic follow up will also address any memory concerns (will need appropriate testing once acute issues have resolved) (4) Dysphasia: Continue speech study follow up. (5) Multifocal pneumonia: Multifocal pneumonia: Aspiration versus community-acquiredsince MRSA nares was negative, continue Zosyn will cover for both. Certainly there is high concern on aspiration given his overall inability to swallow safely. Fortunately this does appear to be improving. Subjective Patient seen and examined at the bedside.No acute events overnight. Patient has fever of 37.8 Celsius most likely related to his lungs and pneumonia. He is more alert today and was asking if he can go home. He denied any complaints of headache, chest pain, numbness, abdominal pain. He continues to report weakness in his right upper and lower extremities. Cough is slowly improving. Patient is poor historian. Review of Systems Review of Systems: All systems reviewed & are unremarkable except as noted in HPI & below Physical Exam Constitutional: WD/WN, vitals as above well developed Eyes: PERRL, conjunctivae normal, anicteric sclerae ENMT: external ear and nose normal, oropharynx normal Neck: trachea midline, no thyromegaly Respiratory: normal respiratory effort, lungs clear to auscultation Auscultation: + wheezes and + bronchovesicular breath sounds Cardiovascular: Heart Sounds: normal S1, normal S2 and + murmur Gastrointestinal (Abdomen): normal bowel sounds, soft, nontender, no hepatosplenomegaly Musculoskeletal: no cyanosis or clubbing, extremities motor strength 5/5 Skin: no rashes, warm and dry Neurologic: patellar DTR's 2+ bilat, sensation intact Psychiatric: Judgement: + limited judgement Lymphatic: no cervical or axillary lymphadenopathy Results & Data Vital Signs (Past 12 Hours) Vital Signs Temp Pulse Resp BP Pulse Ox 05/19/19 07:19 36.1 C L 92 H 20 116/73 97 PG Care Time/CCT Total # of Minutes Spent Total Time Spent with Patient: Total time spent is greater than 50% in coordination of care (as documented) at patient's floor/unit and/or counseling patient:
[2019-05-19 19:15] LABS: Hematocrit (blood only) 34.1 % (42-52); Hemoglobin 11.6 g/dL (14.0-18.0); Mean Corpuscular Hemoglobin 33.9 pg (25-34); Mean Corpuscular Volume 99.7 fL (80-100); Mean Platelet Volume 9.8 fL (7.4-10.4); Platelet Count 352 K/uL (130-400); RDW Coefficient of Variation 14.3 % (11.5-14.5); RDW Standard Deviation 52.1 fL (36.4-46.3); Red Blood Count 3.42 M/uL (4.7-6.1); White Blood Count 11.59 K/uL (4.8-10.8)
[2019-05-19 19:41] LABS: Albumin Level 2.1 gm/dl (3.4-5.0); BUN Creatinine Ratio 34.2 (10-20); Calcium 8.9 mg/dl (8.5-10.1); Creatinine Clr Calc Pharmacy 83.1 ml/min; Est GFR (African American) 123.4; Est GFR (Non-African American) 106.5; Potassium 3.6 mmol/L (3.5-5.1)
[2019-05-19 19:44] LABS: Albumin Globulin Ratio 0.4 (0.9-2); Basophils # (auto) 0.02 K/uL (0-0.2); Basophils % (auto) 0.2 %; Bilirubin,Total 0.3 mg/dl (0.2-1); Eosinophils # (auto) 0.06 K/uL (0-0.5); Eosinophils % (auto) 0.5 %; Globulin 5.1 gm/dl (2.5-4.0); Immature Granulocytes # (auto) 0.03 K/uL (0.00-0.02); Immature Granulocytes % (auto) 0.3 %; Lymphocytes # (auto) 0.88 K/uL (1.2-3.4); Lymphocytes % (auto) 7.6 %; Monocytes # (auto) 0.54 K/uL (0.11-0.59); Monocytes % (auto) 4.7 %; Neutrophils # (auto) 10.06 K/uL (1.4-6.5); Neutrophils % (auto) 86.7 %; Total Protein 7.2 gm/dl (6.4-8.2)
--- NOTE | 2019-05-19 19:59 | XRay Report ---
SINGLE VIEW CHEST CLINICAL HISTORY: Fever. FINDINGS: An AP, portable, upright chest radiograph is compared to study dated 05/16/2019 and correla annabel with chest CT dated 05/11/2019. The examination is degraded by portable technique and patient rot ation. The cardiomediastinal silhouette is unremarkable. Emphysema and chronic interstitial thickenin g are similar to previous. Patchy airspace consolidation is seen in the left mid to lower lung. Airsp harry opacities are also noted in the right upper lung. No large pleural effusion or pneumothorax is se en. The bony thorax is grossly intact. IMPRESSION: 1. Emphysema. 2. There is patchy airspace consolidation at the left lung base. Patchy opacities are also seen in th e right upper lung. The appearance suggests an infectious/inflammatory pneumonitis. Clinical correlat ion will be required and radiographic follow-up to resolution is recommended. Electronically signed by: Aleks Haas M.D. 05/19/2019 7:58 PM
[2019-05-19] MEDS: CEFEPIME 2,000 MG in SYRINGE 7.5 ML IV SCH (20:01)
[2019-05-19] MEDS: metroNIDAZOLE 500 MG/100 ML BAG IV SCH (20:03)
[2019-05-20 02:15] LABS: Appearance Urine Clear (Clear); Bacteria Urine Automated Negative (Negative); Bilirubin Urine Negative (Negative); Blood Urine Negative (Negative); Color Urine Yellow; Glucose Urine UA Negative (Negative); Ketones Urine Negative (Negative); Leukocyte Esterase Urine Trace (Negative); Nitrite Urine Negative (Negative); RBC Urine Automated 0-4 /hpf (0-4); Specific Gravity Urine 1.015 (1.000-1.030); Urobilinogen Urine Negative (Negative); pH Urine 8.5 (4.5-7.5)
[2019-05-20 02:27] LABS: Protein Urine 1+ (Negative); Sulfosalicylic Acid Urine Positive (Negative)
[2019-05-20] MEDS: metroNIDAZOLE 500 MG/100 ML BAG IV SCH ×3 (03:43→20:46)
[2019-05-20 06:14] LABS: Basophils # (auto) 0.02 K/uL (0-0.2); Basophils % (auto) 0.2 %; Eosinophils # (auto) 0.02 K/uL (0-0.5); Eosinophils % (auto) 0.2 %; Hematocrit (blood only) 33.7 % (42-52); Hemoglobin 11.3 g/dL (14.0-18.0); Immature Granulocytes # (auto) 0.04 K/uL (0.00-0.02); Immature Granulocytes % (auto) 0.3 %; Lymphocytes # (auto) 0.86 K/uL (1.2-3.4); Lymphocytes % (auto) 7.3 %; Mean Corpuscular Hemoglobin 33.6 pg (25-34); Mean Corpuscular Hgb Conc 33.5 g/dL (32-36); Mean Corpuscular Volume 100.3 fL (80-100); Mean Platelet Volume 9.8 fL (7.4-10.4); Monocytes # (auto) 0.62 K/uL (0.11-0.59); Monocytes % (auto) 5.3 %; Neutrophils % (auto) 86.7 %; Platelet Count 349 K/uL (130-400); RDW Coefficient of Variation 14.3 % (11.5-14.5); Red Blood Count 3.36 M/uL (4.7-6.1); White Blood Count 11.76 K/uL (4.8-10.8)
[2019-05-20 06:56] LABS: BUN Creatinine Ratio 34.7 (10-20); Calcium 8.6 mg/dl (8.5-10.1); Creatinine Clr Calc Pharmacy 81.8 ml/min; Est GFR (African American) 122.7; Est GFR (Non-African American) 105.8; Potassium 3.3 mmol/L (3.5-5.1)
[2019-05-20 06:59] LABS: Albumin Globulin Ratio 0.4 (0.9-2); Bilirubin,Total 0.6 mg/dl (0.2-1); Globulin 5.2 gm/dl (2.5-4.0); Total Protein 7.2 gm/dl (6.4-8.2)
[2019-05-20] MEDS: ATORVASTATIN 40 MG TAB PO SCH (09:32)
[2019-05-20] MEDS: METOPROLOL TARTRATE 25 MG TAB PO SCH ×2 (09:32→20:37)
[2019-05-20] MEDS: CEFEPIME 2,000 MG in SYRINGE 7.5 ML IV SCH ×2 (09:32→20:36)
[2019-05-20] MEDS: FAMOTIDINE 20 MG TAB PO SCH (09:34)
[2019-05-20] MEDS: FUROSEMIDE 20 MG in SYRINGE 0 ML IV SCH ×2 (09:34→20:37)
[2019-05-20] MEDS: FOLIC ACID 1 MG TAB PO SCH (09:34)
[2019-05-20] MEDS: ENOXAPARIN INJ 30 MG/0.3 ML SYR SQ SCH (09:35)
[2019-05-20] MEDS: POTASSIUM CHLORIDE 20 MEQ TABCR PO SCH (09:35)
[2019-05-20] MEDS: ASPIRIN 81 MG ECTAB PO SCH (09:35)
[2019-05-20] MEDS: COLLAGENASE OINT 30 GM TUBE EXT SCH (09:36)
[2019-05-20] MEDS: THIAMINE HCL 250 MG in SODIUM CHLORIDE 0.9% 50 ML IV SCH (09:36)
--- NOTE | 2019-05-20 13:32 | Wound Progress Note ---
Date of Service May 20, 2019 Assessment & Plan (1) Unstageable pressure ulcer of sacral region: Wound is still developing. Ulcer is covered with thick black eschar at this time. This will be painted with Betadine. We will continue to monitor. (2) Deep tissue injury: Patient's bilateral hips remain tender. However wounds appear to be improving. We will continue to dress with foam and change every other day. Subjective Patient seen lying in the bed. Complaining of chronic diffuse pain all over. Hips are painful and is pushing her hands away as we go to remove bandages. He appears in no acute distress. Review of Systems Review of Systems: All systems reviewed & are unremarkable except as noted in HPI & below Physical Exam Skin: Wounds measuring as recorded in nursing documentation. Sacral wound covered with hard thick black eschar. Neurologic: awake; not confused Psychiatric: Orientation: alert, oriented to person and cooperative Results & Data Vital Signs (Past 12 Hours) Vital Signs Temp Pulse Resp BP Pulse Ox 05/20/19 07:05 36.7 C 91 H 18 118/80 98 PG Care Time/CCT Total # of Minutes Spent Total Time Spent with Patient: Total time spent is greater than 50% in coordination of care (as documented) at patient's floor/unit and/or counseling patient:
[2019-05-20] MEDS ORDERED: POTASSIUM CHLORIDE 20 MEQ TABCR PO STA (19:40)
--- NOTE | 2019-05-20 19:55 | Hospitalist Progress Note ---
Date of Service May 20, 2019 Assessment & Plan (1) Fever: Afebrile now. Chest x-ray show patchy airspace consolidation at the left lung base. Patchy opacities are also seen in the right upper lung. The appearance suggest an infectious inflammatory pneumonitis.Urine culture is positive for Klebsiella pneumoniae on May 10 pansensitive. Blood cultures are negative. She was started yesterday on cefepime and Flagyl for possible aspiration pneumonia/pneumonitis. Speech therapy: Recommended to have patient taking a regular diet. Per nursing regular diet is without difficulties. Will discuss with speech therapy to reassess the patient for possible aspiration and video surveillance and swallow study. Present on Admission?: Yes (2) Multifocal pneumonia: As above Present on Admission?: Yes (3) Deep tissue injury: Patient's bilateral hips remain tender. However wounds appear to be improving. We will continue to dress with foam and change every other day. Present on Admission?: Yes (4) Altered mental status: Patient has chronic encephalopathy. It is slightly better than before waxing and banding. Likely multifactorial due to several new small strokes, mild nourishment, pneumonia, urinary tract infection chronic alcohol abuse/withdrawal/delirium. Patient likely has Wernicke's encephalopathy. NH 323.8 B12 over thousand. Continue thiamine, folate and multivitamin delirium precautions, frequent orientation. Present on Admission?: Yes (5) Stroke: Appreciate neurology recommendations. Patient had multifocal strokes. Continues to have weakness in the RUE/RLE. This is expected expectant given the location of his stroke. Continue cardiac monitoring. Loop recorder under DC if telemetry here unrevealing. Vital, and I HSS per unit routine. Blood pressure parameters systolic blood pressure CAP 180 goal normotension. Continue speech, PT, OT and supportive management. Continue stroke education, stockings cessation, healthy diet, physical activity. Keep LDL below 70, A1c below 7. Follow-up neurology clinic 6 to 8 weeks. Continue aspirin 81 p.o. daily Continue atorvastatin 40 mg daily Present on Admission?: Yes (6) Unstageable pressure ulcer of sacral region: Wound is still developing. Ulcer is covered with thick black eschar at this time. This will be painted with Betadine. We will continue to monitor. Present on Admission?: Yes Subjective Patient seen and examined at the bedside. Poor historian. Chronic encephalopathy due to long-term alcohol abuse. He appears in no acute distress. Patient continues to have productive cough. Afebrile. Review of Systems Review of Systems: All systems reviewed & are unremarkable except as noted in HPI & below Physical Exam Constitutional: WD/WN, vitals as above well developed Eyes: PERRL, conjunctivae normal, anicteric sclerae ENMT: external ear and nose normal, oropharynx normal Neck: trachea midline, no thyromegaly Respiratory: normal respiratory effort, lungs clear to auscultation Auscultation: + wheezes and + bronchovesicular breath sounds Cardiovascular: Heart Sounds: normal S1, normal S2 and + murmur Gastrointestinal (Abdomen): normal bowel sounds, soft, nontender, no hepatosplenomegaly Musculoskeletal: no cyanosis or clubbing, extremities motor strength 5/5 Skin: no rashes, warm and dry Neurologic: patellar DTR's 2+ bilat, sensation intact Psychiatric: Judgement: + limited judgement Lymphatic: no cervical or axillary lymphadenopathy Results & Data Vital Signs (Past 12 Hours) Vital Signs Temp Pulse Resp BP Pulse Ox 05/20/19 15:24 37.5 C 96 H 18 121/80 94 PG Care Time/CCT Total # of Minutes Spent Total Time Spent with Patient: Total time spent is greater than 50% in coordination of care (as documented) at patient's floor/unit and/or counseling patient:
[2019-05-21] MEDS: metroNIDAZOLE 500 MG/100 ML BAG IV SCH ×3 (05:08→19:56)
[2019-05-21 06:09] LABS: Basophils # (auto) 0.02 K/uL (0-0.2); Basophils % (auto) 0.2 %; Eosinophils # (auto) 0.03 K/uL (0-0.5); Eosinophils % (auto) 0.2 %; Hematocrit (blood only) 32.8 % (42-52); Hemoglobin 11.5 g/dL (14.0-18.0); Immature Granulocytes # (auto) 0.03 K/uL (0.00-0.02); Immature Granulocytes % (auto) 0.2 %; Lymphocytes # (auto) 1.19 K/uL (1.2-3.4); Lymphocytes % (auto) 9.5 %; Mean Corpuscular Hemoglobin 34.3 pg (25-34); Mean Corpuscular Hgb Conc 35.1 g/dL (32-36); Mean Corpuscular Volume 97.9 fL (80-100); Mean Platelet Volume 9.7 fL (7.4-10.4); Monocytes # (auto) 0.73 K/uL (0.11-0.59); Monocytes % (auto) 5.8 %; Neutrophils # (auto) 10.48 K/uL (1.4-6.5); Neutrophils % (auto) 84.1 %; Platelet Count 405 K/uL (130-400); RDW Coefficient of Variation 14.4 % (11.5-14.5); RDW Standard Deviation 51.7 fL (36.4-46.3); Red Blood Count 3.35 M/uL (4.7-6.1); White Blood Count 12.48 K/uL (4.8-10.8)
[2019-05-21 06:45] LABS: Albumin Level 2.1 gm/dl (3.4-5.0); BUN Creatinine Ratio 42.1 (10-20); Creatinine Clr Calc Pharmacy 91.5 ml/min; Est GFR (African American) 128.4; Est GFR (Non-African American) 110.8; Potassium 4.1 mmol/L (3.5-5.1)
[2019-05-21 06:50] LABS: Albumin Globulin Ratio 0.4 (0.9-2); Bilirubin,Total 0.5 mg/dl (0.2-1); Globulin 5.3 gm/dl (2.5-4.0); Total Protein 7.4 gm/dl (6.4-8.2)
[2019-05-21] MEDS: ATORVASTATIN 40 MG TAB PO SCH (07:36)
[2019-05-21] MEDS: METOPROLOL TARTRATE 25 MG TAB PO SCH ×2 (07:36→20:04)
[2019-05-21] MEDS: FAMOTIDINE 20 MG TAB PO SCH (07:37)
[2019-05-21] MEDS: FOLIC ACID 1 MG TAB PO SCH (07:37)
[2019-05-21] MEDS: ASPIRIN 81 MG ECTAB PO SCH (07:37)
[2019-05-21] MEDS: POTASSIUM CHLORIDE 20 MEQ TABCR PO SCH (07:37)
[2019-05-21] MEDS: ENOXAPARIN INJ 30 MG/0.3 ML SYR SQ SCH (07:38)
[2019-05-21] MEDS: CEFEPIME 2,000 MG in SYRINGE 7.5 ML IV SCH ×2 (07:40→19:56)
[2019-05-21] MEDS: FUROSEMIDE 20 MG in SYRINGE 0 ML IV SCH (09:23)
[2019-05-21] MEDS: THIAMINE HCL 250 MG in SODIUM CHLORIDE 0.9% 50 ML IV SCH (09:48)
[2019-05-21] MEDS: CEROVITE ADV FORMULA TAB PO SCH (09:59)
--- NOTE | 2019-05-21 11:30 | Hospitalist Progress Note ---
Date of Service May 21, 2019 Assessment & Plan (1) Multifocal pneumonia: Likely aspiration in etiology given his dysphagia. Continue cefepime and flagyl IV. Day #3 of such. Continue supportive care with albuterol/atrovent nebs q6h. Dysphagia precautions. (2) Stroke: left-sided on MRI brain earlier this stay. had neurology and PT/OT/speech evals. currently on statin and asa for secondary prevention. Due to CPK elevation hold statin. very poor prognosis given his pre-existing dementia or dementia-like process. (3) Unstageable pressure ulcer of sacral region: wound care following; appreciate their assistance and recs. add MVI. (4) Alcohol abuse: by history - severe, heavy abuse chronically. could have alcoholic dementia 2nd to abuse. could have Wernecke's Encephalopathy in setting off alcoholism. (5) Severe protein-calorie malnutrition: patient cacechtic. poor appetite. significant dysphagia. has RUL pulmonary nodule - easily could be cancer. need to refine goals of care with next of kin (nephew or brother). Add MVI. cont thiamine. (6) Rhabdomyolysis: Previous CPK was >5000; now <2000. HOLD statin due to the elevated CPK. Rhabdo likely due to an unwitnessed fall (my suspicion). Repeat CPK in 2 days. (7) Dementia: suspected. based on clinical exam and MRI brain. supportive care. thiamine replacement if Wernecke's. (8) PAD (peripheral artery disease): has significant carotid disease. and on exam has poor or absent pulses from the knees down b/l with poor cap refill. dopplers of legs would likely reveal severe PAD. need to refine goals of care with family in light of poor prognosis. would not do PAD w/u until I discuss care plan w/ next of kin. continue asa. (9) Essential (primary) hypertension: cont current meds (10) Carotid artery stenosis: moderate based on CTA study (11) Pulmonary nodule: RUL could easily be early lung ca. see discussion above. (12) COPD (chronic obstructive pulmonary disease): schedule nebs q6h. defer on steroids for now. (13) DVT prophylaxis: lovenox spoke with LU Linton who will attempt to contact his nephew to set up family meeting need to address code status strongly consider palliative care STOP lasix IV Subjective patient unable to provide any meaningful history or ROS. with open-ended questions and directed-questions he generally did not answer them. it was very difficult to understand his speaking in general. staff report that shortly after my visit he pulled out his agustin catheter. this is at least the 2nd time he has done so since admission. spoke with case management - Shaila Stevens pt's next of kin is a brother in the [facility] but they are estranged. after that there is a nephew that is local. he has no children. Review of Systems Review of Systems: Unobtainable due to cognitive status Physical Exam Constitutional: + cachectic, + altered mental status, + frail appearing and + disheveled; + not well developed, + not well nourished and no acute distress ENMT: external ear and nose normal, oropharynx normal Respiratory: Auscultation: + crackles (bases) and + wheezes Cardiovascular: Rate/Rhythm: regular rate and regular rhythm Heart Sounds: normal S1 and normal S2; no murmur Vessels: no JVD, + posterior tibial pulses abnormal, + dorsalis pedis pulses abnormal and + popliteal pulses abnormal Extremities: no edema cap refill both feet 4 seconds; cool to touch Gastrointestinal (Abdomen): Inspection/Auscultation: normal bowel sounds and + scaphoid Percussion/Palpation: abdomen nontender and no hepatosplenomegaly Skin: + wound (b/l hips - dressings intact; numerous tiny ulcers on shins and feet) Trauma: + abrasion (multiple - legs) Neurologic: + focal motor deficit (right sided weakness ) Psychiatric: Orientation: alert; + not oriented x 3 Eye Contact: + poor eye contact Results & Data Vital Signs (Past 12 Hours) Vital Signs Temp Pulse Resp BP Pulse Ox 05/21/19 07:14 36.9 C 91 H 20 110/79 97 Laboratory Results Laboratory Results - last 24 hr 05/21/19 05/21/19 05/21/19 05:03 05:03 05:03 WBC 12.48 H RBC 3.35 L Hgb 11.5 L Hct 32.8 L MCV 97.9 MCH 34.3 H MCHC 35.1 RDW Std Deviation 51.7 H RDW Coeff of Rufina 14.4 Plt Count 405 H MPV 9.7 Immature Gran % (Auto) 0.2 Neut % (Auto) 84.1 Lymph % (Auto) 9.5 Rankin % (Auto) 5.8 Eos % (Auto) 0.2 Baso % (Auto) 0.2 Immature Gran # (Auto) 0.03 H Neut # (Auto) 10.48 H Lymph # (Auto) 1.19 L Rankin # (Auto) 0.73 H Eos # (Auto) 0.03 Baso # (Auto) 0.02 Sodium 140 Potassium 4.1 D Chloride 107 Carbon Dioxide 25 Anion Gap 9.0 BUN 25 H Creatinine 0.59 L Est Cr Clr Drug Dosing 91.5 Est GFR ( Amer) 128.4 Est GFR (Non-Af Amer) 110.8 BUN/Creatinine Ratio 42.1 H Glucose 101 H Calcium 9.0 Total Bilirubin 0.5 AST 118 H ALT 52 Alkaline Phosphatase 92 Total Creatine Kinase 1542 H Total Protein 7.4 Albumin 2.1 L Globulin 5.3 H Albumin/Globulin Ratio 0.4 L PG Care Time/CCT Total # of Minutes Spent Total Time Spent with Patient: Total time spent is greater than 50% in coordination of care (as documented) at patient's floor/unit and/or counseling patient: (1) Stroke CVA mechanism: unspecified Qualified Code(s): I63.9 - Cerebral infarction, unspecified (2) Rhabdomyolysis Rhabdomyolysis type: traumatic Encounter type: subsequent encounter Qualified Code(s): T79.6XXD - Traumatic ischemia of muscle, subsequent encounter (3) Dementia Dementia type: unspecified type Dementia behavioral disturbance: without behavioral disturbance Qualified Code(s): F03.90 - Unspecified dementia without behavioral disturbance (4) Carotid artery stenosis Laterality: bilateral Qualified Code(s): I65.23 - Occlusion and stenosis of bilateral carotid arteries (5) COPD (chronic obstructive pulmonary disease) COPD type: unspecified COPD Qualified Code(s): J44.9 - Chronic obstructive pulmonary disease, unspecified
[2019-05-21] MEDS: ALBUT/IPRATROP 3MG/0.5MG NEB 3 ML VIAL NEB SCH ×3 (12:49→18:53)
[2019-05-22] MEDS: ACETAMINOPHEN 325 MG TAB PO PRN ×2 (00:18→17:01)
[2019-05-22] MEDS: ALBUT/IPRATROP 3MG/0.5MG NEB 3 ML VIAL NEB SCH ×4 (01:45→19:14)
[2019-05-22] MEDS: metroNIDAZOLE 500 MG/100 ML BAG IV SCH ×3 (03:50→20:16)
[2019-05-22] MEDS: CEFEPIME 2,000 MG in SYRINGE 7.5 ML IV SCH ×2 (08:52→20:16)
[2019-05-22] MEDS: ENOXAPARIN INJ 30 MG/0.3 ML SYR SQ SCH (08:54)
[2019-05-22] MEDS: ASPIRIN 81 MG ECTAB PO SCH (08:56)
[2019-05-22] MEDS: FOLIC ACID 1 MG TAB PO SCH (08:57)
[2019-05-22] MEDS: METOPROLOL TARTRATE 25 MG TAB PO SCH ×2 (08:57→20:20)
[2019-05-22] MEDS: POTASSIUM CHLORIDE 20 MEQ TABCR PO SCH (08:57)
[2019-05-22] MEDS: CEROVITE ADV FORMULA TAB PO SCH (08:58)
[2019-05-22] MEDS: FAMOTIDINE 20 MG TAB PO SCH (08:58)
[2019-05-22] MEDS: THIAMINE HCL 250 MG in SODIUM CHLORIDE 0.9% 50 ML IV SCH (09:10)
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
[2019-05-23] MEDS: ALBUT/IPRATROP 3MG/0.5MG NEB 3 ML VIAL NEB SCH ×5 (01:03→19:00)
[2019-05-23] MEDS: metroNIDAZOLE 500 MG/100 ML BAG IV SCH ×2 (04:06→12:51)
[2019-05-23 06:31] LABS: Creatinine Clr Calc Pharmacy 110.2 ml/min; Est GFR (African American) 138.6; Est GFR (Non-African American) 119.6
[2019-05-23] MEDS: CEFEPIME 2,000 MG in SYRINGE 7.5 ML IV SCH (07:59)
[2019-05-23] MEDS: ENOXAPARIN INJ 30 MG/0.3 ML SYR SQ SCH (07:59)
[2019-05-23] MEDS: FOLIC ACID 1 MG TAB PO SCH (08:00)
[2019-05-23] MEDS: ASPIRIN 81 MG ECTAB PO SCH (08:00)
[2019-05-23] MEDS: POTASSIUM CHLORIDE 20 MEQ TABCR PO SCH (08:01)
[2019-05-23] MEDS: METOPROLOL TARTRATE 25 MG TAB PO SCH ×2 (08:01→20:24)
[2019-05-23] MEDS: CEROVITE ADV FORMULA TAB PO SCH (08:01)
[2019-05-23] MEDS: FAMOTIDINE 20 MG TAB PO SCH (08:02)
[2019-05-23] MEDS: THIAMINE HCL 100 MG TAB PO SCH (08:02)
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
[2019-05-23] MEDS: ACETAMINOPHEN 500 MG TAB PO SCH ×2 (14:26→20:24)
--- NOTE | 2019-05-23 14:31 | XRay Report ---
XR hips ALEKSANDRA 1v w pelvis CLINICAL HISTORY: fall, eval for fracture. Hip pain. COMPARISON STUDY: None. FINDINGS: Suboptimal evaluation of the bilateral hips due to patient positioning. No definite fractur e or dislocation within the pelvis or hips. The visualized sacrum appears intact. Vascular calcificat ions are noted. Moderate size mobile within the rectum. IMPRESSION: Suboptimal evaluation of the pelvis and hips due to the patient positioning. No definite fracture or dislocation. Electronically signed by: Deacon Young M.D. 05/23/2019 2:30 PM
--- NOTE | 2019-05-23 14:34 | XRay Report ---
XR knee LT 1 or 2V routine CLINICAL HISTORY: fall, pain, eval for Fx. Left knee pain. COMPARISON STUDY: None. FINDINGS: No fracture or dislocation within the left knee. Chondrocalcinosis. Vascular calcifications are noted. Suspect a small knee effusion. IMPRESSION: 1. No fracture or dislocation within the left knee. 2. Chondrocalcinosis. 3. Probable small knee effusion. Electronically signed by: Deacon Young M.D. 05/23/2019 2:33 PM
--- NOTE | 2019-05-23 15:19 | Hospitalist Progress Note ---
Date of Service May 23, 2019 Assessment & Plan (1) Multifocal pneumonia: Likely aspiration in etiology given his dysphagia. Improved. Day #5/7 of abx. D/c cefepime and flagyl -- change to augmentin to finish out course. Dysphagia precautions. (2) Stroke: left-sided on MRI brain earlier this stay. had neurology and PT/OT/speech evals. currently on statin and asa for secondary prevention. Due to CPK elevation continuing to hold statin. very poor prognosis given his pre-existing dementia or dementia-like process. family today state he had another stroke several years ago. (3) Unstageable pressure ulcer of sacral region: wound care following; appreciate their assistance and recs. MVI. frequent turning. pain meds. (4) Alcohol abuse: severe, heavy abuse chronically. 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 could have Wernecke's Encephalopathy in setting off alcoholism. (5) Severe protein-calorie malnutrition: patient cacechtic. poor appetite although modestly better today. significant dysphagia. has RUL pulmonary nodule - easily could be cancer. very, very poor candidate for PEG and artificial nutrition. I RECOMMENDED AGAINST SUCH during our family discussion today. (6) Rhabdomyolysis: Previous CPK was >5000; now <2000. HOLD statin due to the elevated CPK. Rhabdo likely due to an unwitnessed fall (my suspicion). Repeat CPK tomorrow. (7) Dementia: suspected. mod-severe. based on clinical exam and MRI brain. supportive care. thiamine replacement if Wernecke's for now. (8) PAD (peripheral artery disease): has significant carotid disease. on exam has poor or absent pulses from the knees down b/l with poor cap refill, left leg much worse than right. dopplers of legs would likely reveal severe PAD. after discussing his overall issues with family today we will not pursue aggressive care (vascular surgery eval, etc). (9) Essential (primary) hypertension: cont current meds (10) Carotid artery stenosis: moderate based on CTA study (11) Pulmonary nodule: RUL could easily be early lung ca. family reports extensive weight loss over last 2-3 months (12) COPD (chronic obstructive pulmonary disease): nebs q6h stable (13) DVT prophylaxis: lovenox (14) Goals of care, counseling/discussion: 50 minute long conversation with pt's niece in law, 2 nephews, great niece, palliative care, and social work today. we discussed who would be POA (both nephews agreeable to such), code status, SNF placement, report of all identified medical problems, care plan, etc. family requests DNR (patient is w/o capacity thus family needs to make this decision for him). we will NOT be pursuing aggressive care such as feeding tube, vascular eval for PAD of legs, etc. family understands he will need 24/7 care at SNF. POLST form completed by Anita from palliative care. they do NOT want him re-hospitalized in the event he gets worse or sick in the future. he has c/o left leg pain - this may be due to severe PAD given his left leg appearance. because of recent fall will obtain left hip, pelvis, and left knee films -- r/o fracture. he has been accepted at [facility]. family requests referrals to SNFs in [facility]. he will be ready for d/c on Sunday after insurance approval for SNF. total time today 65 minutes. Subjective patient more awake today than yesterday was actually feeding himself during my visit I had a very hard time understanding his speech and his answers to my questions some other providers report that he knew he was in the hospital but thought it was [place] he told his family last night, however, that he had been living with his grandparents (both are , however) Review of Systems Review of Systems: difficult to elicit but c/o left leg pain Physical Exam Constitutional: + cachectic, + altered mental status, + frail appearing and + disheveled; + not well developed, + not well nourished and no acute distress ENMT: external ear and nose normal, oropharynx normal Respiratory: Auscultation: + wheezes Cardiovascular: Rate/Rhythm: regular rate and regular rhythm Heart Sounds: normal S1 and normal S2; no murmur Vessels: no JVD, + posterior tibial pulses abnormal, + dorsalis pedis pulses abnormal and + popliteal pulses abnormal Extremities: no edema Gastrointestinal (Abdomen): Inspection/Auscultation: normal bowel sounds Percussion/Palpation: abdomen nontender and no hepatosplenomegaly Musculoskeletal: left foot - toes 3-5 ischemic appearing, pale, mottled appearing. Entire foot is cool to touch. Skin: Trauma: + abrasion (multiple - legs) VERY LARGE sacral decubitus ulcer with large amount of black eschar in central portion of wound; there is minimal amount of granulation at leading edge of ulcer; no odor. multiple ulcerations over both lateral hips, over multiple toes left foot, shins, and lateral malleoli of both ankles. cap refill of left foot 4 seconds. Neurologic: + focal motor deficit (right sided weakness ) Psychiatric: Orientation: alert; + not oriented x 3 Results & Data Vital Signs (Past 12 Hours) Vital Signs Temp Pulse Pulse Resp BP BP Pulse Ox 05/23/19 14:57 36.9 C 88 18 117/88 99 05/23/19 07:21 74 16 97 05/23/19 07:00 36.8 C 87 18 134/87 94 Laboratory Results Laboratory Results - last 24 hr 05/23/19 05:32 Creatinine 0.49 L Est Cr Clr Drug Dosing 110.2 Est GFR ( Amer) 138.6 Est GFR (Non-Af Amer) 119.6 PG Care Time/CCT Total # of Minutes Spent Total Time Spent with Patient: Total time spent is greater than 50% in coordination of care (as documented) at patient's floor/unit and/or counseling patient: (1) Stroke CVA mechanism: unspecified Qualified Code(s): I63.9 - Cerebral infarction, unspecified (2) Rhabdomyolysis Rhabdomyolysis type: traumatic Encounter type: subsequent encounter Qualified Code(s): T79.6XXD - Traumatic ischemia of muscle, subsequent encounter (3) Dementia Dementia type: unspecified type Dementia behavioral disturbance: without behavioral disturbance Qualified Code(s): F03.90 - Unspecified dementia without behavioral disturbance (4) Carotid artery stenosis Laterality: bilateral Qualified Code(s): I65.23 - Occlusion and stenosis of bilateral carotid arteries (5) COPD (chronic obstructive pulmonary disease) COPD type: unspecified COPD Qualified Code(s): J44.9 - Chronic obstructive pulmonary disease, unspecified
[2019-05-23] MEDS: AMOXICILLIN/CLAVULANATE 875 MG TAB PO SCH (16:58)
[2019-05-23] MEDS: OXYCODONE HCL IR 5 MG TAB (IMMEDIATE RELEASE) PO PRN (17:00)
[2019-05-24] MEDS: ALBUT/IPRATROP 3MG/0.5MG NEB 3 ML VIAL NEB SCH ×4 (00:58→18:58)
[2019-05-24] MEDS: OXYCODONE HCL IR 5 MG TAB (IMMEDIATE RELEASE) PO PRN (05:32)
[2019-05-24 06:37] LABS: BUN Creatinine Ratio 33.9 (10-20); Calcium 8.6 mg/dl (8.5-10.1); Creatinine Clr Calc Pharmacy 125.6 ml/min; Est GFR (African American) 146.3; Est GFR (Non-African American) 126.2; Potassium 3.2 mmol/L (3.5-5.1)
[2019-05-24] MEDS: AMOXICILLIN/CLAVULANATE 875 MG TAB PO SCH ×2 (08:38→16:53)
[2019-05-24] MEDS: ENOXAPARIN INJ 30 MG/0.3 ML SYR SQ SCH (08:38)
[2019-05-24] MEDS: CEROVITE ADV FORMULA TAB PO SCH (08:39)
[2019-05-24] MEDS: ASPIRIN 81 MG ECTAB PO SCH (08:39)
[2019-05-24] MEDS: POTASSIUM CHLORIDE 20 MEQ TABCR PO SCH (08:39)
[2019-05-24] MEDS: METOPROLOL TARTRATE 25 MG TAB PO SCH ×2 (08:39→20:55)
[2019-05-24] MEDS: FOLIC ACID 1 MG TAB PO SCH (08:39)
[2019-05-24] MEDS: THIAMINE HCL 100 MG TAB PO SCH (08:40)
[2019-05-24] MEDS: ACETAMINOPHEN 500 MG TAB PO SCH ×3 (08:40→20:54)
[2019-05-24] MEDS: FAMOTIDINE 20 MG TAB PO SCH (08:40)
--- NOTE | 2019-05-24 23:26 | Hospitalist Progress Note ---
Date of Service May 24, 2019 Assessment & Plan (1) Multifocal pneumonia: Likely aspiration in etiology given his dysphagia. Improved. Day #6/7 of abx. augmentin to finish out course. Dysphagia precautions. (2) Stroke: left-sided on MRI brain earlier this stay. had neurology and PT/OT/speech evals. currently on statin and asa for secondary prevention. Due to CPK elevation continuing to hold statin. very poor prognosis given his pre-existing dementia or dementia-like process. family today state he had another stroke several years ago. (3) Unstageable pressure ulcer of sacral region: wound care following; appreciate their assistance and recs. MVI. frequent turning. pain meds. (4) Alcohol abuse: severe, heavy abuse chronically. 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 could have Wernecke's Encephalopathy in setting off alcoholism. (5) Severe protein-calorie malnutrition: patient cacechtic. poor appetite although modestly better today. significant dysphagia. has RUL pulmonary nodule - easily could be cancer. very, very poor candidate for PEG and artificial nutrition. I RECOMMENDED AGAINST SUCH during our family discussion today. (6) Rhabdomyolysis: Previous CPK was >5000; now <2000. HOLD statin due to the elevated CPK. Rhabdo likely due to an unwitnessed fall (my suspicion). Repeat CPK tomorrow. (7) Dementia: suspected. mod-severe. based on clinical exam and MRI brain. supportive care. thiamine replacement if Wernecke's for now. (8) PAD (peripheral artery disease): has significant carotid disease. on exam has poor or absent pulses from the knees down b/l with poor cap refill, left leg much worse than right. dopplers of legs would likely reveal severe PAD. after discussing his overall issues with family today we will not pursue aggressive care (vascular surgery eval, etc). (9) Essential (primary) hypertension: cont current meds (10) Carotid artery stenosis: moderate based on CTA study (11) Pulmonary nodule: RUL could easily be early lung ca. family reports extensive weight loss over last 2-3 months (12) COPD (chronic obstructive pulmonary disease): nebs q6h stable (13) DVT prophylaxis: lovenox (14) Goals of care, counseling/discussion: Previous hospital provider discussed POA, code status, discharge plan. Information noted below. family requests DNR (patient is w/o capacity thus family needs to make this decision for him). we will NOT be pursuing aggressive care such as feeding tube, vascular eval for PAD of legs, etc. family understands he will need 24/7 care at SNF. POLST form completed by Anita from palliative care. they do NOT want him re-hospitalized in the event he gets worse or sick in the future. he has c/o left leg pain - this may be due to severe PAD given his left leg appearance. because of recent fall will obtain left hip, pelvis, and left knee films -- r/o fracture. he has been accepted at [facility]. family requests referrals to SNFs in [facility]. he will be ready for d/c on Sunday after insurance approval for SNF. Subjective 58 yo male communicates. But it is very hard to understand him He is awake. He does not appear to be in any pain however. Review of Systems Review of Systems: Other difficult to understand patient. Physical Exam Physical Exam: Constitutional: + cachectic, + altered mental status, + frail appearing and + disheveled; no acute distress ENMT: external ear and nose normal, oropharynx normal Respiratory: Auscultation: + diminished lung sounds Cardiovascular: Rate/Rhythm: regular rate and regular rhythm Heart Sounds: normal S1 and normal S2; no murmur Vessels: no JVD, + posterior tibial pulses abnormal, + dorsalis pedis pulses abnormal and + popliteal pulses abnormal Extr emities: no edema Gastrointestinal (Abdomen): Inspection/Auscultation: normal bowel sounds and + scaphoid Percussion/Palpation: abdomen nontender and no hepatosplenomegaly Skin: + wound (b/l hips - dressings intact; numerous tiny ulcers on shins and feet) Trauma: + abrasion (multiple - legs) Neurologic: + focal motor deficit (right sided weakness ) Psychiatric: Orientation: alert; + not oriented x 3 Results & Data Vital Signs (Past 12 Hours) Vital Signs Temp Pulse Pulse Resp BP Pulse Ox 05/24/19 19:00 74 20 90 05/24/19 14:00 36.9 C 95 H 18 109/68 99 05/24/19 13:08 86 18 94 PG Care Time/CCT Total # of Minutes Spent Total Time Spent with Patient: Total time spent is greater than 50% in coordination of care (as documented) at patient's floor/unit and/or counseling patient: (1) Carotid artery stenosis Laterality: bilateral Qualified Code(s): I65.23 - Occlusion and stenosis of bilateral carotid arteries (2) Dementia Dementia behavioral disturbance: without behavioral disturbance Dementia type: unspecified type Qualified Code(s): F03.90 - Unspecified dementia without behavioral disturbance (3) Rhabdomyolysis Encounter type: subsequent encounter Rhabdomyolysis type: traumatic Qualified Code(s): T79.6XXD - Traumatic ischemia of muscle, subsequent encounter (4) COPD (chronic obstructive pulmonary disease) COPD type: unspecified COPD Qualified Code(s): J44.9 - Chronic obstructive pulmonary disease, unspecified (5) Stroke CVA mechanism: unspecified Qualified Code(s): I63.9 - Cerebral infarction, unspecified
[2019-05-25] MEDS: ALBUT/IPRATROP 3MG/0.5MG NEB 3 ML VIAL NEB SCH ×4 (00:57→19:18)
[2019-05-25] MEDS: ASPIRIN 81 MG ECTAB PO SCH (09:41)
[2019-05-25] MEDS: POTASSIUM CHLORIDE 20 MEQ TABCR PO SCH (09:41)
[2019-05-25] MEDS: AMOXICILLIN/CLAVULANATE 875 MG TAB PO SCH ×2 (09:41→16:59)
[2019-05-25] MEDS: ENOXAPARIN INJ 30 MG/0.3 ML SYR SQ SCH (09:41)
[2019-05-25] MEDS: ACETAMINOPHEN 500 MG TAB PO SCH ×3 (09:42→21:26)
[2019-05-25] MEDS: CEROVITE ADV FORMULA TAB PO SCH (09:42)
[2019-05-25] MEDS: METOPROLOL TARTRATE 25 MG TAB PO SCH ×2 (09:42→21:26)
[2019-05-25] MEDS: THIAMINE HCL 100 MG TAB PO SCH (09:43)
[2019-05-25] MEDS: FOLIC ACID 1 MG TAB PO SCH (09:44)
[2019-05-25] MEDS: FAMOTIDINE 20 MG TAB PO SCH (09:45)
--- NOTE | 2019-05-25 21:40 | Hospitalist Progress Note ---
Date of Service May 25, 2019 Assessment & Plan (1) Multifocal pneumonia: Likely aspiration in etiology given his dysphagia. Improved. Day #7/7 of abx. augmentin to finish out course. Dysphagia precautions. (2) Stroke: left-sided on MRI brain earlier this stay. had neurology and PT/OT/speech evals. currently on statin and asa for secondary prevention. Due to CPK elevation continuing to hold statin. very poor prognosis given his pre-existing dementia or dementia-like process. family today state he had another stroke several years ago. (3) Unstageable pressure ulcer of sacral region: wound care following; appreciate their assistance and recs. MVI. frequent turning. pain meds. (4) Alcohol abuse: severe, heavy abuse chronically. 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 could have Wernecke's Encephalopathy in setting off alcoholism. (5) Severe protein-calorie malnutrition: patient cacechtic. poor appetite although modestly better today. significant dysphagia. has RUL pulmonary nodule - easily could be cancer. very, very poor candidate for PEG and artificial nutrition. I RECOMMENDED AGAINST SUCH during our family discussion today. (6) Rhabdomyolysis: Previous CPK was >5000; now <2000. HOLD statin due to the elevated CPK. Rhabdo likely due to an unwitnessed fall (my suspicion). Repeat CPK : 1700 (7) Dementia: suspected. mod-severe. based on clinical exam and MRI brain. supportive care. thiamine replacement if Wernecke's for now. (8) PAD (peripheral artery disease): has significant carotid disease. on exam has poor or absent pulses from the knees down b/l with poor cap refill, left leg much worse than right. dopplers of legs would likely reveal severe PAD. after discussing his overall issues with family today we will not pursue aggressive care (vascular surgery eval, etc). (9) Essential (primary) hypertension: cont current meds (10) Carotid artery stenosis: moderate based on CTA study (11) Pulmonary nodule: RUL could easily be early lung ca. family reports extensive weight loss over last 2-3 months (12) COPD (chronic obstructive pulmonary disease): nebs q6h stable (13) DVT prophylaxis: lovenox (14) Goals of care, counseling/discussion: Previous hospital provider discussed POA, code status, discharge plan. Information noted below. family requests DNR (patient is w/o capacity thus family needs to make this decision for him). we will NOT be pursuing aggressive care such as feeding tube, vascular eval for PAD of legs, etc. family understands he will need 24/7 care at SNF. POLST form completed by Anita from palliative care. they do NOT want him re-hospitalized in the event he gets worse or sick in the future. he has c/o left leg pain - this may be due to severe PAD given his left leg appearance. because of recent fall will obtain left hip, pelvis, and left knee films -- r/o fracture. he has been accepted at [facility]. family requests referrals to SNFs in [facility]. he will be ready for d/c on Sunday after insurance approval for SNF. Subjective Patient does not provide signifcant history Review of Systems Review of Systems: difficult to understand patient. Physical Exam Physical Exam: Constitutional: + cachectic, + altered mental status, + frail appearing and + disheveled; no acute distress ENMT: external ear and nose normal, oropharynx normal Respiratory: Auscultation: + diminished lung sounds Cardiovascular: Rate/Rhythm: regular rate and regular rhythm Heart Sounds: normal S1 and normal S2; no murmur Vessels: no JVD, + posterior tibial pulses abnormal, + dorsalis pedis pulses abnormal and + popliteal pulses abnormal Extremities: no edema Gastrointestinal (Abdomen): Inspection/Auscultation: normal bowel sounds and + scaphoid Percussion/Palpation: abdomen nontender and no hepatosplenomegaly Skin: + wound (b/l hips - dressings intact; numerous tiny ulcers on shins and feet) Trauma: + abrasion (multiple - legs) Neurologic: + focal motor deficit (right sided weakness ) Psychiatric: Orientation: alert; + not oriented x 3 Results & Data Vital Signs (Past 12 Hours) Vital Signs Temp Pulse Resp BP Pulse Ox 05/25/19 15:00 36.6 C 74 18 119/78 100 PG Care Time/CCT Total # of Minutes Spent Total Time Spent with Patient: Total time spent is greater than 50% in coordination of care (as documented) at patient's floor/unit and/or counseling patient: (1) Carotid artery stenosis Laterality: bilateral Qualified Code(s): I65.23 - Occlusion and stenosis of bilateral carotid arteries (2) Dementia Dementia behavioral disturbance: without behavioral disturbance Dementia type: unspecified type Qualified Code(s): F03.90 - Unspecified dementia without behavioral disturbance (3) Rhabdomyolysis Encounter type: subsequent encounter Rhabdomyolysis type: traumatic Qualified Code(s): T79.6XXD - Traumatic ischemia of muscle, subsequent encounter (4) COPD (chronic obstructive pulmonary disease) COPD type: unspecified COPD Qualified Code(s): J44.9 - Chronic obstructive pulmonary disease, unspecified (5) Stroke CVA mechanism: unspecified Qualified Code(s): I63.9 - Cerebral infarction, unspecified
[2019-05-26] MEDS: ALBUT/IPRATROP 3MG/0.5MG NEB 3 ML VIAL NEB SCH ×4 (00:49→19:23)
[2019-05-26 06:06] LABS: Est GFR (African American) > 150.0; Est GFR (Non-African American) 135.8
[2019-05-26 09:19] LABS: Basophils # (auto) 0.04 K/uL (0-0.2); Basophils % (auto) 0.4 %; Eosinophils # (auto) 0.07 K/uL (0-0.5); Eosinophils % (auto) 0.7 %; Hematocrit (blood only) 31.8 % (42-52); Hemoglobin 10.9 g/dL (14.0-18.0); Immature Granulocytes # (auto) 0.02 K/uL (0.00-0.02); Immature Granulocytes % (auto) 0.2 %; Lymphocytes # (auto) 2.06 K/uL (1.2-3.4); Lymphocytes % (auto) 20.2 %; Mean Corpuscular Hemoglobin 33.7 pg (25-34); Mean Corpuscular Volume 98.5 fL (80-100); Monocytes # (auto) 0.82 K/uL (0.11-0.59); Neutrophils # (auto) 7.19 K/uL (1.4-6.5); Neutrophils % (auto) 70.5 %; Platelet Count 601 K/uL (130-400); RDW Coefficient of Variation 14.7 % (11.5-14.5); RDW Standard Deviation 52.8 fL (36.4-46.3); Red Blood Count 3.23 M/uL (4.7-6.1)
[2019-05-26 09:37] LABS: Albumin Level 1.9 gm/dl (3.4-5.0); BUN Creatinine Ratio 38.2 (10-20); Calcium 8.8 mg/dl (8.5-10.1); Creatinine Clr Calc Pharmacy 125.6 ml/min; Est GFR (African American) 146.3; Est GFR (Non-African American) 126.2; Potassium 4.1 mmol/L (3.5-5.1)
[2019-05-26 09:38] LABS: Mean Corpuscular Hgb Conc 34.3 g/dL (32-36)
[2019-05-26 09:41] LABS: Albumin Globulin Ratio 0.4 (0.9-2); Bilirubin,Total 0.3 mg/dl (0.2-1); Total Protein 6.9 gm/dl (6.4-8.2)
[2019-05-26] MEDS: AMOXICILLIN/CLAVULANATE 875 MG TAB PO SCH ×2 (10:05→16:58)
[2019-05-26] MEDS: ENOXAPARIN INJ 30 MG/0.3 ML SYR SQ SCH (10:05)
[2019-05-26] MEDS: ASPIRIN 81 MG ECTAB PO SCH (10:07)
[2019-05-26] MEDS: POTASSIUM CHLORIDE 20 MEQ TABCR PO SCH (10:07)
[2019-05-26] MEDS: METOPROLOL TARTRATE 25 MG TAB PO SCH ×2 (10:07→21:12)
[2019-05-26] MEDS: FOLIC ACID 1 MG TAB PO SCH (10:07)
[2019-05-26] MEDS: CEROVITE ADV FORMULA TAB PO SCH (10:08)
[2019-05-26] MEDS: FAMOTIDINE 20 MG TAB PO SCH (10:08)
[2019-05-26] MEDS: ACETAMINOPHEN 500 MG TAB PO SCH ×3 (10:08→21:11)
[2019-05-26] MEDS: THIAMINE HCL 100 MG TAB PO SCH (10:09)
[2019-05-26] MEDS: OXYCODONE HCL IR 5 MG TAB (IMMEDIATE RELEASE) PO PRN (16:56)
--- NOTE | 2019-05-26 17:14 | Hospitalist Progress Note ---
Date of Service May 26, 2019 Assessment & Plan (1) Multifocal pneumonia: Likely aspiration in etiology given his dysphagia. Improved. Day #7/7 of abx. augmentin to finish out course. Dysphagia precautions. (2) Stroke: left-sided on MRI brain earlier this stay. had neurology and PT/OT/speech evals. currently on statin and asa for secondary prevention. Due to CPK elevation continuing to hold statin. very poor prognosis given his pre-existing dementia or dementia-like process. family today state he had another stroke several years ago. (3) Unstageable pressure ulcer of sacral region: wound care following; appreciate their assistance and recs. MVI. frequent turning. pain meds. (4) Alcohol abuse: severe, heavy abuse chronically. 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 could have Wernecke's Encephalopathy in setting off alcoholism. (5) Severe protein-calorie malnutrition: patient cacechtic. poor appetite although modestly better today. significant dysphagia. has RUL pulmonary nodule - easily could be cancer. very, very poor candidate for PEG and artificial nutrition. I RECOMMENDED AGAINST SUCH during our family discussion today. (6) Rhabdomyolysis: Previous CPK was >5000; now <2000. HOLD statin due to the elevated CPK. Rhabdo likely due to an unwitnessed fall (my suspicion). Repeat CPK : 1700 (7) Dementia: suspected. mod-severe. based on clinical exam and MRI brain. supportive care. thiamine replacement if Wernecke's for now. (8) PAD (peripheral artery disease): has significant carotid disease. on exam has poor or absent pulses from the knees down b/l with poor cap refill, left leg much worse than right. dopplers of legs would likely reveal severe PAD. after discussing his overall issues with family today we will not pursue aggressive care (vascular surgery eval, etc). (9) Essential (primary) hypertension: cont current meds (10) Carotid artery stenosis: moderate based on CTA study (11) Pulmonary nodule: RUL could easily be early lung ca. family reports extensive weight loss over last 2-3 months (12) COPD (chronic obstructive pulmonary disease): nebs q6h stable (13) DVT prophylaxis: lovenox (14) Goals of care, counseling/discussion: Previous hospital provider discussed POA, code status, discharge plan. Information noted below. family requests DNR (patient is w/o capacity thus family needs to make this decision for him). we will NOT be pursuing aggressive care such as feeding tube, vascular eval for PAD of legs, etc. family understands he will need 24/7 care at SNF. POLST form completed by Anita from palliative care. they do NOT want him re-hospitalized in the event he gets worse or sick in the future. he has c/o left leg pain - this may be due to severe PAD given his left leg appearance. because of recent fall will obtain left hip, pelvis, and left knee films -- r/o fracture. he has been accepted at [facility]. family requests referrals to SNFs in [facility]. he will be ready for d/c on Sunday after insurance approval for SNF. Subjective Patient seen and examined at the bedside. Afebrile. Slowly improving. Patient more awake today than yesterday was actually feeding himself during my visit. He has severe encephalopathy is very difficult to understand him what he is saying.. Patient is disoriented in space and time. Review of Systems Review of Systems: difficult to understand patient. Physical Exam Constitutional: WD/WN, vitals as above well developed Eyes: PERRL, conjunctivae normal, anicteric sclerae ENMT: external ear and nose normal, oropharynx normal Neck: trachea midline, no thyromegaly Respiratory: normal respiratory effort, lungs clear to auscultation Auscultation: + wheezes and + bronchovesicular breath sounds Cardiovascular: Heart Sounds: normal S1, normal S2 and + murmur Gastrointestinal (Abdomen): normal bowel sounds, soft, nontender, no hepatosp lenomegaly Musculoskeletal: no cyanosis or clubbing, extremities motor strength 5/5 Skin: no rashes, warm and dry Neurologic: patellar DTR's 2+ bilat, sensation intact Psychiatric: Judgement: + limited judgement Lymphatic: no cervical or axillary lymphadenopathy Results & Data Vital Signs (Past 12 Hours) Vital Signs Temp Pulse Resp BP Pulse Ox 05/26/19 15:36 36.8 C 67 20 94/64 L 91 05/26/19 07:28 85 16 95 05/26/19 07:17 36.4 C L 82 18 117/70 100 PG Care Time/CCT Total # of Minutes Spent Total Time Spent with Patient: Total time spent is greater than 50% in coordination of care (as documented) at patient's floor/unit and/or counseling patient: (1) Stroke CVA mechanism: unspecified Qualified Code(s): I63.9 - Cerebral infarction, unspecified (2) Rhabdomyolysis Rhabdomyolysis type: traumatic Encounter type: subsequent encounter Qualified Code(s): T79.6XXD - Traumatic ischemia of muscle, subsequent encounter (3) Dementia Dementia type: unspecified type Dementia behavioral disturbance: without behavioral disturbance Qualified Code(s): F03.90 - Unspecified dementia without behavioral disturbance (4) Carotid artery stenosis Laterality: bilateral Qualified Code(s): I65.23 - Occlusion and stenosis of bilateral carotid arteries (5) COPD (chronic obstructive pulmonary disease) COPD type: unspecified COPD Qualified Code(s): J44.9 - Chronic obstructive pulmonary disease, unspecified
[2019-05-27] MEDS: ALBUT/IPRATROP 3MG/0.5MG NEB 3 ML VIAL NEB SCH ×4 (01:14→19:04)
[2019-05-27 05:47] LABS: Basophils # (auto) 0.03 K/uL (0-0.2); Basophils % (auto) 0.3 %; Eosinophils # (auto) 0.06 K/uL (0-0.5); Eosinophils % (auto) 0.7 %; Hematocrit (blood only) 32.4 % (42-52); Immature Granulocytes # (auto) 0.03 K/uL (0.00-0.02); Immature Granulocytes % (auto) 0.3 %; Lymphocytes # (auto) 1.91 K/uL (1.2-3.4); Lymphocytes % (auto) 21.9 %; Mean Corpuscular Hemoglobin 33.3 pg (25-34); Mean Corpuscular Volume 98.2 fL (80-100); Mean Platelet Volume 8.5 fL (7.4-10.4); Monocytes # (auto) 0.67 K/uL (0.11-0.59); Monocytes % (auto) 7.7 %; Neutrophils # (auto) 6.02 K/uL (1.4-6.5); Neutrophils % (auto) 69.1 %; Platelet Count 553 K/uL (130-400); RDW Coefficient of Variation 14.9 % (11.5-14.5); RDW Standard Deviation 53.7 fL (36.4-46.3); White Blood Count 8.72 K/uL (4.8-10.8)
[2019-05-27 06:26] LABS: BUN Creatinine Ratio 35.7 (10-20); Calcium 8.9 mg/dl (8.5-10.1); Creatinine Clr Calc Pharmacy 117.4 ml/min; Est GFR (African American) 142.3; Est GFR (Non-African American) 122.8; Potassium 3.9 mmol/L (3.5-5.1)
[2019-05-27 06:29] LABS: Albumin Globulin Ratio 0.4 (0.9-2); Bilirubin,Total 0.3 mg/dl (0.2-1); Globulin 5.2 gm/dl (2.5-4.0); Total Protein 7.2 gm/dl (6.4-8.2)
[2019-05-27] MEDS: AMOXICILLIN/CLAVULANATE 875 MG TAB PO SCH ×2 (08:35→16:32)
[2019-05-27] MEDS: ENOXAPARIN INJ 30 MG/0.3 ML SYR SQ SCH (08:35)
[2019-05-27] MEDS: ASPIRIN 81 MG ECTAB PO SCH (08:36)
[2019-05-27] MEDS: POTASSIUM CHLORIDE 20 MEQ TABCR PO SCH (08:36)
[2019-05-27] MEDS: METOPROLOL TARTRATE 25 MG TAB PO SCH ×2 (08:36→20:15)
[2019-05-27] MEDS: FAMOTIDINE 20 MG TAB PO SCH (08:37)
[2019-05-27] MEDS: CEROVITE ADV FORMULA TAB PO SCH (08:37)
[2019-05-27] MEDS: THIAMINE HCL 100 MG TAB PO SCH (08:40)
[2019-05-27] MEDS ORDERED: ACETAMINOPHEN 500 MG TAB PO PRN (08:58)
[2019-05-27] MEDS: OXYCODONE HCL IR 5 MG TAB (IMMEDIATE RELEASE) PO PRN (09:02)
[2019-05-27] MEDS: FOLIC ACID 1 MG TAB PO SCH (09:04)
--- NOTE | 2019-05-27 15:13 | Wound Progress Note ---
Date of Service May 27, 2019 Assessment & Plan (1) Unstageable pressure ulcer of sacral region: Patient sacral wound is more mobile. Wound needed debridement. After obtaining permission topical Xylocaine was applied. Using scissors, forceps and scalpel necrotic tissue, fibrin, slough a nd black eschar were removed. Scant bleeding was controlled with pressure. Patient tolerated the procedure well with no complications. This represents an excisional debridement of approximately 40 cm. Wound was dressed with Aquacel Ag. We will continue to paint the black eschar with Betadine. Patient otherwise continues to deteriorate from a wound standpoint developing new wounds as he would not keep his waffle boots on. We will continue to follow patient. Please not hesitate to call with any questions. Subjective Patient seen laying in bed. Appears more comfortable. Patient has no new complaints. Review of Systems Review of Systems: All systems reviewed & are unremarkable except as noted in HPI & below Physical Exam Skin: Sacral wound wound measuring as recorded in nursing documentation. Black eschar is more mobile and is starting to lift. Overall other wounds on hip superior stable may be slightly worsened. Patient is not keeping his waffle boots on is having further breakdown on his lower extremities. Neurologic: awake and + confused Psychiatric: Orientation: alert, oriented to person and cooperative Results & Data Vital Signs (Past 12 Hours) Vital Signs Temp Pulse Pulse Resp BP Pulse Ox 05/27/19 13:10 71 16 95 05/27/19 07:37 36.6 C 92 H 18 134/88 95 05/27/19 07:15 71 16 95 PG Care Time/CCT Total # of Minutes Spent Total Time Spent with Patient: Total time spent is greater than 50% in coordination of care (as documented) at patient's floor/unit and/or counseling patient:
--- NOTE | 2019-05-27 17:45 | Hospitalist Progress Note ---
Date of Service May 27, 2019 Assessment & Plan (1) Multifocal pneumonia: Likely aspiration in etiology given his dysphagia. Improved. Day #7/7 of abx. augmentin to finish out course. Dysphagia precautions. (2) Stroke: left-sided on MRI brain earlier this stay. had neurology and PT/OT/speech evals. currently on statin and asa for secondary prevention. Due to CPK elevation continuing to hold statin. very poor prognosis given his pre-existing dementia or dementia-like process. family today state he had another stroke several years ago. (3) Unstageable pressure ulcer of sacral region: wound care following; appreciate their assistance and recs. MVI. frequent turning. pain meds. (4) Alcohol abuse: severe, heavy abuse chronically. 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 could have Wernecke's Encephalopathy in setting off alcoholism. (5) Severe protein-calorie malnutrition: patient cacechtic. poor appetite although modestly better today. significant dysphagia. has RUL pulmonary nodule - easily could be cancer. very, very poor candidate for PEG and artificial nutrition. I RECOMMENDED AGAINST SUCH during our family discussion today. (6) Rhabdomyolysis: Previous CPK was >5000; now <2000. HOLD statin due to the elevated CPK. Rhabdo likely due to an unwitnessed fall (my suspicion). Repeat CPK : 1700 (7) Dementia: suspected. mod-severe. based on clinical exam and MRI brain. supportive care. thiamine replacement if Wernecke's for now. (8) PAD (peripheral artery disease): has significant carotid disease. on exam has poor or absent pulses from the knees down b/l with poor cap refill, left leg much worse than right. dopplers of legs would likely reveal severe PAD. after discussing his overall issues with family today we will not pursue aggressive care (vascular surgery eval, etc). (9) Essential (primary) hypertension: cont current meds (10) Carotid artery stenosis: moderate based on CTA study (11) Pulmonary nodule: RUL could easily be early lung ca. family reports extensive weight loss over last 2-3 months (12) COPD (chronic obstructive pulmonary disease): nebs q6h stable (13) DVT prophylaxis: lovenox (14) Goals of care, counseling/discussion: Previous hospital provider discussed POA, code status, discharge plan. Information noted below. family requests DNR (patient is w/o capacity thus family needs to make this decision for him). we will NOT be pursuing aggressive care such as feeding tube, vascular eval for PAD of legs, etc. family understands he will need 24/7 care at SNF. POLST form completed by Anita from palliative care. they do NOT want him re-hospitalized in the event he gets worse or sick in the future. he has c/o left leg pain - this may be due to severe PAD given his left leg appearance. because of recent fall will obtain left hip, pelvis, and left knee films -- r/o fracture. he has been accepted at [facility]. family [facility] he will be ready for d/c on Sunday after insurance approval for SNF. Subjective Patient seen and examined at the bedside.Patient seen laying in bed. Afebrile. Appears more comfortable. Continues highly chronically encephalopathic.It is very difficult to understand his speech. Patient has no new complaints. P.o. intake improving. Review of Systems Review of Systems: All systems reviewed & are unremarkable except as noted in HPI & below Results & Data Vital Signs (Past 12 Hours) Vital Signs Temp Pulse Pulse Resp BP BP Pulse Ox 05/27/19 15:28 36.7 C 84 20 120/76 100 05/27/19 13:10 71 16 95 05/27/19 07:37 36.6 C 92 H 18 134/88 95 05/27/19 07:15 71 16 95 PG Care Time/CCT Total # of Minutes Spent Total Time Spent with Patient: Total time spent is greater than 50% in coordination of care (as documented) at patient's floor/unit and/or counseling patient: (1) Stroke CVA mechanism: unspecified Qualified Code(s): I63.9 - Cerebral infarction, unspecified (2) Rhabdomyolysis Rhabdomyolysis type: traumatic Encounter type: subsequent encounter Qualified Code(s): T79.6XXD - Traumatic ischemia of muscle, subsequent encounter (3) Dementia Dementia type: unspecified type Dementia behavioral disturbance: without behavioral disturbance Qualified Code(s): F03.90 - Unspecified dementia without behavioral disturbance (4) Carotid artery stenosis Laterality: bilateral Qualified Code(s): I65.23 - Occlusion and stenosis of bilateral carotid arteries (5) COPD (chronic obstructive pulmonary disease) COPD type: unspecified COPD Qualified Code(s): J44.9 - Chronic obstructive pulmonary disease, unspecified
[2019-05-28] MEDS: ALBUT/IPRATROP 3MG/0.5MG NEB 3 ML VIAL NEB SCH ×2 (01:05→06:59)
[2019-05-28 05:50] LABS: Basophils # (auto) 0.01 K/uL (0-0.2); Basophils % (auto) 0.1 %; Eosinophils # (auto) 0.05 K/uL (0-0.5); Eosinophils % (auto) 0.5 %; Hematocrit (blood only) 33.4 % (42-52); Immature Granulocytes # (auto) 0.02 K/uL (0.00-0.02); Immature Granulocytes % (auto) 0.2 %; Lymphocytes % (auto) 22.7 %; Mean Corpuscular Hgb Conc 32.9 g/dL (32-36); Mean Corpuscular Volume 100.3 fL (80-100); Mean Platelet Volume 8.9 fL (7.4-10.4); Monocytes # (auto) 0.82 K/uL (0.11-0.59); Monocytes % (auto) 8.9 %; Neutrophils # (auto) 6.25 K/uL (1.4-6.5); Neutrophils % (auto) 67.6 %; Platelet Count 548 K/uL (130-400); RDW Standard Deviation 55.2 fL (36.4-46.3); Red Blood Count 3.33 M/uL (4.7-6.1); White Blood Count 9.25 K/uL (4.8-10.8)
[2019-05-28 06:22] LABS: Albumin Level 2.1 gm/dl (3.4-5.0); Calcium 9.4 mg/dl (8.5-10.1); Creatinine Clr Calc Pharmacy 103.8 ml/min; Est GFR (African American) 135.3; Est GFR (Non-African American) 116.7; Potassium 4.1 mmol/L (3.5-5.1)
[2019-05-28 06:24] LABS: Albumin Globulin Ratio 0.4 (0.9-2); Bilirubin,Total 0.2 mg/dl (0.2-1); Globulin 5.2 gm/dl (2.5-4.0); Total Protein 7.3 gm/dl (6.4-8.2)
[2019-05-28 07:20] VITALS: TEMP 98.8; O2SAT 98
[2019-05-28] MEDS: FOLIC ACID 1 MG TAB PO SCH (07:59)
[2019-05-28] MEDS: THIAMINE HCL 100 MG TAB PO SCH (07:59)
[2019-05-28] MEDS: METOPROLOL TARTRATE 25 MG TAB PO SCH (07:59)
[2019-05-28] MEDS: AMOXICILLIN/CLAVULANATE 875 MG TAB PO SCH (07:59)
[2019-05-28] MEDS: ENOXAPARIN INJ 30 MG/0.3 ML SYR SQ SCH (08:00)
[2019-05-28] MEDS: POTASSIUM CHLORIDE 20 MEQ TABCR PO SCH (08:00)
[2019-05-28] MEDS: FAMOTIDINE 20 MG TAB PO SCH (08:00)
[2019-05-28] MEDS: CEROVITE ADV FORMULA TAB PO SCH (08:00)
[2019-05-28] MEDS: ASPIRIN 81 MG ECTAB PO SCH (08:04)
--- NOTE | 2019-05-28 10:42 | Hospitalist Progress Note ---
Date of Service May 28, 2019 Assessment & Plan (1) Multifocal pneumonia: Improved. Likely aspiration in etiology given his dysphagia.Pt is going to be transferred today to [facility]. Follow up with Neurology in 4 weeks. Improved. Day #7/7 of abx. augmentin to finish out course. Dysphagia precautions. (2) Stroke: left-sided on MRI brain earlier this stay. had neurology and PT/OT/speech evals. currently on statin and asa for secondary prevention. Due to CPK elevation continuing to hold statin. very poor prognosis given his pre-existing dementia or dementia-like process. family today state he had another stroke several years ago. (3) Unstageable pressure ulcer of sacral region: wound care following; appreciate their assistance and recs. MVI. frequent turning. pain meds. (4) Alcohol abuse: severe, heavy abuse chronically. 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 could have Wernecke's Encephalopathy in setting off alcoholism. (5) Severe protein-calorie malnutrition: patient cacechtic. poor appetite although modestly better today. significant dysphagia. has RUL pulmonary nodule - easily could be cancer. very, very poor candidate for PEG and artificial nutrition. I RECOMMENDED AGAINST SUCH during our family discussion today. (6) Rhabdomyolysis: Previous CPK was >5000; now <2000. HOLD statin due to the elevated CPK. Rhabdo likely due to an unwitnessed fall (my suspicion). Repeat CPK : 1700 (7) Dementia: suspected. mod-severe. based on clinical exam and MRI brain. supportive care. thiamine replacement if Wernecke's for now. (8) PAD (peripheral artery disease): has significant carotid disease. on exam has poor or absent pulses from the knees down b/l with poor cap refill, left leg much worse than right. dopplers of legs would likely reveal severe PAD. after discussing his overall issues with family today we will not pursue aggressive care (vascular surgery eval, etc). (9) Essential (primary) hypertension: cont current meds (10) Carotid artery stenosis: moderate based on CTA study (11) Pulmonary nodule: RUL could easily be early lung ca. family reports extensive weight loss over last 2-3 months (12) COPD (chronic obstructive pulmonary disease): nebs q6h stable (13) DVT prophylaxis: lovenox (14) Goals of care, counseling/discussion: Previous hospital provider discussed POA, code status, discharge plan. Information noted below. family requests DNR (patient is w/o capacity thus family needs to make this decision for him). we will NOT be pursuing aggressive care such as feeding tube, vascular eval for PAD of legs, etc. family understands he will need 24/7 care at SNF. POLST form completed by Anita from palliative care. they do NOT want him re-hospitalized in the event he gets worse or sick in the future. he has c/o left leg pain - this may be due to severe PAD given his left leg appearance. because of recent fall will obtain left hip, pelvis, and left knee films -- r/o fracture. he has been accepted at [facility]. family requests referrals to SNFs in [facility]. he will be ready for d/c on Sunday after insurance approval for SNF. Subjective Patient seen and examined at the bedside.Patient seen laying in bed. Afebrile. Appears more comfortable. Continues highly chronically encephalopathic.It is very difficult to understand his speech. Patient has no new complaints. P.o. intake improving. Review of Systems Review of Systems: All systems reviewed & are unremarkable except as noted in HPI & below Physical Exam Constitutional: WD/WN, vitals as above well developed Eyes: PERRL, conjunctivae normal, anicteric sclerae ENMT: external ear and nose normal, oropharynx normal Neck: trachea midline, no thyromegaly Respiratory: normal respiratory effort, lungs clear to auscultation Auscultation: + wheezes and + bronchovesicular breath sounds Cardiovascular: Heart Sounds: normal S1, normal S2 and + murmur Gastrointestinal (Abdomen): normal bowel sounds, soft, nontender, no hepatosplenomegaly Musculoskeletal: no cyanosis or clubbing, extremities motor strength 5/5 Skin: no rashes, warm and dry Neurologic: patellar DTR's 2+ bilat, sensation intact Psychiatric: Judgement: + limited judgement Lymphatic: no cervical or axillary lymphadenopathy Results & Data Vital Signs (Past 12 Hours) Vital Signs Temp Pulse Resp BP BP Pulse Ox 05/28/19 07:19 37.1 C 92 H 16 129/88 98 05/28/19 07:00 62 14 93 05/28/19 01:05 82 18 97 05/28/19 00:00 36.7 C 85 18 125/83 97 PG Care Time/CCT Total # of Minutes Spent Total Time Spent with Patient: Total time spent is greater than 50% in coordination of care (as documented) at patient's floor/unit and/or counseling patient: (1) Carotid artery stenosis Laterality: bilateral Qualified Code(s): I65.23 - Occlusion and stenosis of bilateral carotid arteries (2) Dementia Dementia behavioral disturbance: without behavioral disturbance Dementia typ e: unspecified type Qualified Code(s): F03.90 - Unspecified dementia without behavioral disturbance (3) Rhabdomyolysis Encounter type: subsequent encounter Rhabdomyolysis type: traumatic Qualified Code(s): T79.6XXD - Traumatic ischemia of muscle, subsequent encounter (4) COPD (chronic obstructive pulmonary disease) COPD type: unspecified COPD Qualified Code(s): J44.9 - Chronic obstructive pulmonary disease, unspecified (5) Stroke CVA mechanism: unspecified Qualified Code(s): I63.9 - Cerebral infarction, unspecified
[2019-05-28 11:42] VITALS: BP 125/83; PULSE 71
--- NOTE | 2019-05-28 17:35 | Discharge Summary ---
Date of Service May 28, 2019 Principal Diagnosis none Discharge Exam Constitutional WD/WN, vitals as above well developed Eyes PERRL, conjunctivae normal, anicteric sclerae ENMT external ear and nose normal, oropharynx normal Neck trachea midline, no thyromegaly Respiratory normal respiratory effort, lungs clear to auscultation Auscultation: + wheezes and + bronchovesicular breath sounds Cardiovascular Heart Sounds: normal S1, normal S2 and + murmur Gastrointestinal (Abdomen) normal bowel sounds, soft, nontender, no hepatosplenomegaly Musculoskeletal no cyanosis or clubbing, extremities motor strength 5/5 Skin no rashes, warm and dry Neurologic patellar DTR's 2+ bilat, sensation intact Psychiatric Judgement: + limited judgement Lymphatic no cervical or axillary lymphadenopathy Discharge Data Allergies Allergy/AdvReac Type Severity Reaction Status Date / Time No Known Allergies Allergy Unverified 05/10/19 20:42 Consultations 05/10/19 21:53 ED Decision to Admit Stat 05/11/19 02:33 Consult Case Management - Discharge Planning Routine 05/13/19 09:34 Consult Neurology Routine 05/14/19 16:02 Consult Wound Care Provider Routine 05/22/19 10:07 Consult Palliative Care Routine Ordered Studies 05/10/19 19:38 CT head/brain wo con Stat 05/10/19 20:43 CT angio head w con Stat CT angio neck with con Stat 05/11/19 19:27 CT angio chest PE protocol Urgent 05/12/19 17:42 CT head/brain wo con Routine 05/13/19 00:34 MR brain wo con Routine Hospital Course (1) Multifocal pneumonia: Improved. Likely aspiration in etiology given his dysphagia.Pt is going to be transferred today to [facility]. Follow up with Neurology in 4 weeks. Improved. Day #7/7 of abx. augmentin to finish out course. Dysphagia precautions. (2) Stroke: left-sided on MRI brain earlier this stay. had neurology and PT/OT/speech evals. currently on statin and asa for secondary prevention. Due to CPK elevation continuing to hold statin. very poor prognosis given his pre-existing dementia or dementia-like process. family today state he had another stroke several years ago. (3) Unstageable pressure ulcer of sacral region: wound care following; appreciate their assistance and recs. MVI. frequent turning. pain meds. (4) Alcohol abuse: severe, heavy abuse chronically. 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 could have Wernecke's Encephalopathy in setting off alcoholism. (5) Severe protein-calorie malnutrition: patient cacechtic. poor appetite although modestly better today. significant dysphagia. has RUL pulmonary nodule - easily could be cancer. very, very poor candidate for PEG and artificial nutrition. I RECOMMENDED AGAINST SUCH during our family discussion today. (6) Rhabdomyolysis: Previous CPK was >5000; now <2000. HOLD statin due to the elevated CPK. Rhabdo likely due to an unwitnessed fall (my suspicion). Repeat CPK : 1700 (7) Dementia: suspected. mod-severe. based on clinical exam and MRI brain. supportive care. thiamine replacement if Wernecke's for now. (8) PAD (peripheral artery disease): has significant carotid disease. on exam has poor or absent pulses from the knees down b/l with poor cap refill, left leg much worse than right. dopplers of legs would likely reveal severe PAD. after discussing his overall issues with family today we will not pursue aggressive care (vascular surgery eval, etc). (9) Essential (primary) hypertension: cont current meds (10) Carotid artery stenosis: moderate based on CTA study (11) Pulmonary nodule: RUL could easily be early lung ca. family reports extensive weight loss over last 2-3 months (12) COPD (chronic obstructive pulmonary disease): nebs q6h stable (13) DVT prophylaxis: lovenox (14) Goals of care, counseling/discussion: Previous hospital provider discussed POA, code status, discharge plan. Information noted below. family requests DNR (patient is w/o capacity thus family needs to make this decision for him). we will NOT be pursuing aggressive care such as feeding tube, vascular eval for PAD of legs, etc. family understands he will need 24/7 care at SNF. POLST form completed by Anita from palliative care. they do NOT want him re-hospitalized in the event he gets worse or sick in the future. he has c/o left leg pain - this may be due to severe PAD given his left leg appearance. because of recent fall will obtain left hip, pelvis, and left knee films -- r/o fracture. he has been accepted at [facility]. family requests referrals to SNFs in [facility]. he will be ready for d/c on Sunday after insurance approval for SNF. Total Time Total Time Spent Total Time Spent (In Minutes): over 30 min Discharge Plan Discharge Items Patient Disposition: Transfer [facility] Fac Reason For Visit: PNEUMONIA, UTI Discharge Diagnosis: Pneumonia, UTI, stroke Condition on Discharge: [facility] Concerns: severe encephalopathy, stroke [place], significant weight loss, pulmonary nodule Activity: Resume your previous activity Lifting: Gradually increase as tolerated Non-emergency contact: Primary Care Provider, Neurologist and [employer] Call non-emergency contact if: you have any medication questions, your symptoms worsen, your pain is not controlled, your pain is worsening, your pain is unusual for you, your pain is concerning for you, you have a fever, your rectal temperature is above 100.4, your temperature is above 101, your wound has in creased redness and your wound has increased drainage Follow-up/Referrals: [facility] [Provider Group] (Please, follow up at [facility]. *A nurse will contact you with the appointment information. The wound clinic is located at [address] [facility] [address] in [place]. If you have any questions, call the wound clinic at [phone].) Abida Fernandez CRNP [Nurse Practitioner] - 07/14/19 10:00 am (Please, follow up at [facility] Pulmonology Office with Abida ALVAREZ on SundayJuly 14 at 10:00 am. *The office is located in [address] [facility], next to this hospital. If you need to change this appointment, call the office at [phone].) Génesis Fitzpatrick MD [Physician] - 06/24/19 10:45 am (Please, follow up at [facility] Neurology Office with Dr. Fitzpatrick on SundayJune 24 at 10:45 am. *The office is located at [facility] [facility] in [place]. If you need to change this appointment, call the office at [phone].) Diet: Regular Diet Texture: Pureed (blended smooth) Liquid Consistency: [place] thick Addtl Attending Provider Instructions: Please follow up with Pulmonary Clinic for pulmonary nodule in 6 weeks. Follow up with Neurology Dr. Génesis Fitzpatrick in 4 weeks, Follow Up with wound Clinic Dr. Morataya in 1 week. Follow up with PCP in 1 week. Please check CBC and CMP with PCP Pending Studies at Discharge: No Stand-Alone Forms: My [facility] Skilled Items Patient informed of condition?: Yes DNR: Yes Discharge Level of Care: Skilled Communicable Disease: No Discharge Prognosis: Stable Lines: None Urinary Catheter: No Medications and DC Order Prescriptions: New aspirin [Ecotrin Low Strength] 81 mg Tablet,Delayed Release (Dr/Ec) 81 mg PO DAILY Qty: 30 RF: 0 potassium chloride [Klor-Con M20] 20 mEq Tablet,Er Particles/Crystals 20 meq PO QAM Qty: 30 RF: 0 famotidine 20 mg Tablet 20 mg PO DAILY Qty: 30 RF: 0 thiamine HCl (vitamin B1) [Vitamin B-1] 100 mg Tablet 200 mg PO DAILY Qty: 60 RF: 0 folic acid 1 mg Tablet 1 mg PO DAILY Qty: 30 RF: 0 Certavite-Antioxidant 18-400 mg-mcg Tablet 1 tab PO QAM Qty: 30 RF: 0 acetaminophen [Tylenol Extra Strength] 500 mg tablet 500 mg PO Q8H MDD 2g PRN (Reason: pain) Qty: 20 RF: 0 albuterol sulfate 90 mcg/actuation aerosol powdr breath activated 2 puffs INH Q6H PRN (Reason: shortness of breath or wheezing) Qty: 1 RF: 0 Symbicort 160-4.5 mcg/actuation HFA aerosol inhaler 2 puffs INH BID Qty: 10.2 RF: 0 baclofen 5 mg tablet 5 mg PO BID PRN (Reason: for spasam and pain) Qty: 10 RF: 0 Continued metoprolol tartrate [Lopressor] 50 mg Tablet 25 mg PO BID RF: 0 lisinopril [Zestril] 2.5 mg Tablet 2.5 mg PO DAILY RF: 0 Discharge Orders: Discharge Order (Routine); Ordered 05/28/19 Ordered By: Jelani Willis Admission Data Admit Date/Time: 05/10/19 23:35 Attending Provider: Jelani Willis Admit Provider: Dixon Francisco Primary Care Provider: PCP,NO Other Providers: Dixon Francisco ; Nahum Washington III ; Hugo Morataya ; Eunice Christianson ; [place] Other Interventions: Discharge Summary Assessment (RN) Last Done: 05/28/19 11:36 DC Date/Time DO NOT enter until pt leaves facility: 05/28/19 13:08
== END 2019-05-28 13:08 | DRG 64 ==
LOC: ED 19:24 → SUATTDRO 23:35 → 2N 23:35 → 2E 05-11 19:25 → 4W 05-14 16:00